=== PATIENT | female | born 2000 | race Caucasian/White ===

== ENCOUNTER 2020-12-28 20:49 | Emergency (ER) | payer MEDICAID, SELFPAY ==
[2020-12-28 21:06] VITALS: BP 146/75; PULSE 89; RESP 18; TEMP 36.7; O2SAT 98; BMI 47.9
--- NOTE | 2020-12-28 21:13 | CT_ITS ---
PROCEDURE INFORMATION: Exam: CT Abdomen And Pelvis With Contrast Exam date and time: 12/28/2020 9:13 PM Age: 20 years old Clinical indication: Abdominal pain; Localized; Right upper quadrant (ruq); Patient HX: Ruq pain with vomiting, PT has pcos; Additional info: Abd pain ruq TECHNIQUE: Imaging protocol: Computed tomography of the abdomen and pelvis with contrast. Radiation optimization: All CT scans at this facility use at least one of these dose optimization techniques: automated exposure control; mA and/or kV adjustment per patient size (includes targeted exams where dose is matched to clinical indication); or iterative reconstruction. Contrast material: ISOVUE; Contrast volume: 75 ml; Contrast route: IV; COMPARISON: No relevant prior studies available. FINDINGS: Liver: Fatty liver and hepatomegaly. Gallbladder and bile ducts: Normal. No calcified stones. No ductal dilation. Pancreas: Normal. No ductal dilation. Spleen: Normal. No splenomegaly. Adrenal glands: Normal. No mass. Kidneys and ureters: Normal. No hydronephrosis. Stomach and bowel: Unremarkable. No obstruction. No mucosal thickening. Appendix: No evidence of appendicitis. Intraperitoneal space: Unremarkable. No free air. No significant fluid collection. Vasculature: Unremarkable. No abdominal aortic aneurysm. Lymph nodes: Unremarkable. No enlarged lymph nodes. Urinary bladder: Unremarkable as visualized. Reproductive: Unremarkable as visualized. Bones/joints: Unremarkable. No acute fracture. Soft tissues: Unremarkable. IMPRESSION: No acute findings.
[2020-12-28 21:20] LABS: Microscopic, Urine URINE MICROSCOPIC (MICROSCOPIC)
--- NOTE | 2020-12-28 21:21 | HMH.EDNVD ---
ED Disposition Clinical Impression: Abdominal pain Qualifiers: Abdominal location: right upper quadrant Qualified Code(s): R10.11 - Right upper quadrant pain Disposition: Home, Self-Care Condition on Discharge: Good Instructions: DI for Acute Abdominal Pain Additional Instructions: see pcp for jacqueline dominguez Referrals: Provider,Referral, [Primary Care Provider] - - Critical Care Critical Care Time: No Attestation: On 12/28/20, the high probability of a clinically significant, sudden or life threatening deterioration of the following system(s) required my full and direct attention, intervention and personal management. The time I documented below is in addition to time spent performing reported procedures but includes the following listed in this critical care notation. Medical Decision Making - Medical Records Medical records reviewed: Yes: I reviewed the patient's medical records. - Roman Inquiry Pt receiving controlled substance: No Vital Signs: 12/28/20 21:06 Temperature 98.1 F Temperature Source Oral Pulse Rate [Right Brachial] 89 Respiratory Rate 18 Blood Pressure [Right Arm] 146/75 H Blood Pressure Mean [Right Arm] 98 Blood Pressure Source [Right Arm] Automatic Cuff Blood Pressure Position [Right Arm] Sitting 02 Sat by Pulse Oximetry 98 Oxygen Delivery Method Room Air - Lab Data Lab results reviewed: Yes: I reviewed the patient's lab results. Lab Results 12/28/20 21:00: Urine Color Yellow, Urine Appearance Clear, Urine pH 8.0, Ur Specific [place] 1.020, Urine Protein Negative, Urine Glucose (UA) Negative, Urine Ketones Negative, Urine Blood Negative, Urine Nitrate Negative, Urine Bilirubin Negative, Urine Urobilinogen 1.0, Ur Leukocyte Esterase Negative, Urine WBC 3-5, Urine Bacteria Trace 12/28/20 21:00: WBC 9.8, RBC 5.01, Hgb 15.6, Hct 45.7, MCV 91.3, MCH 31.1, MCHC 34.0, RDW 12.9, Plt Count 430 H, MPV 8.5, Neut % (Auto) 65.4, Lymph % (Auto) 27.9, [place] % (Auto) 3.8, Eos % (Auto) 1.8, Baso % (Auto) 1.1, Neut # (Auto) 6.4, Lymph # (Auto) 2.7, [place] # (Auto) 0.4, Eos # (Auto) 0.2, Baso # (Auto) 0.1, ESR 47 H 12/28/20 21:00: Urine HCG, Qual Negative 12/28/20 21:00: Sodium 139, Potassium 3.7, Chloride 99, Carbon Dioxide 27, Anion Gap 16.7 H, BUN 13, Creatinine 0.60, Estimated Creat Clear 124, Estimated GFR 127, Est GFR ( Amer) 154, Glucose 108 H, Calcium 9.3, Total Bilirubin 0.3, AST 35, ALT 42, Alkaline Phosphatase 55, C-Reactive Protein 6.1 H, Total Protein 8.1, Albumin 4.6, Globulin 3.5 H, Albumin/Globulin Ratio 1.3, Amylase 72, Lipase 113, Procalcitonin 0.048 Result diagrams: 12/28/20 21:00 12/28/20 21:00 Orders (Tests/Meds): ED MEDICATIONS Discontinued Medications Generic Name Dose Route Start Last Admin Trade Name Freq PRN Reason Stop Dose Admin Lactated Ringer's 1,000 mls @ 999 mls/hr 12/28/20 21:15 12/28/20 21:45 Lactated Ringer's 1000 Ml Bag IV 12/28/20 22:15 999 mls/hr .Q1H1M MARAI G Administration Iopamidol 75 ml 12/28/20 22:03 12/28/20 22:04 Iopamidol-370 (76%);100ml Bottle IV 12/28/20 22:04 75 ml ONCE ONE Administration Ketorolac Tromethamine 30 mg 12/28/20 21:14 12/28/20 21:44 Ketorolac 30mg/Ml Vial IV 12/28/20 21:15 30 mg ONCE ONE Administration Ondansetron HCl 4 mg 12/28/20 21:14 12/28/20 21:44 Ondansetron 4mg/2ml Vial IV 12/28/20 21:15 4 mg ONCE ONE Administration Sodium Chloride 10 ml 12/28/20 22:03 12/28/20 22:04 Sodium Chloride 0.9% 10ml Syr (Rad Only) IV 12/28/20 22:04 10 ml ONCE ONE Administration - CT Data CT Scan: Abdomen, Pelvis Time Received: 22:[address] Reviewed: Yes: I have viewed the radiologist's interpretation Preliminary Findings: Normal/NAD Medical Decision Narrative: will need to see pcp for more eval as could be gb dis Nausea/Vomiting/Diarrhea HPI - General Chief complaint: Abdominal Pain Stated complaint: abdominal pain Time Seen by Provider: 12/28/20 21:21 Mode of Arrival:
[2020-12-28 21:24] LABS: Basophils # 0.1 K/mm3 (0-0.2); Basophils % 1.1 % (0.1-2.0); Eosinophils # 0.2 K/mm3 (0.0-0.4); Eosinophils % 1.8 % (0.1-12.0); Hematocrit 45.7 % (37.0-47.0); Hemoglobin 15.6 g/dL (12.2-16.2); Lymphocytes # 2.7 K/mm3 (0.7-4.5); Lymphocytes % 27.9 % (10-50); Mean Corpuscular Hemoglobin 31.1 pg (27.0-31.2); Mean Corpuscular Volume 91.3 fl (81-99); Mean Platelet Volume 8.5 fl (7.4-10.4); Monocytes # 0.4 K/mm3 (0.1-1.0); Monocytes % 3.8 % (1.7-9.3); Neutrophils # 6.4 K/mm3 (1.8-7.8); Neutrophils % 65.4 % (37.0-80.0); Platelet Count 430 K/mm3 (142-424); Red Blood Count 5.01 M/mm3 (4.20-5.40); Red Cell Distribution Width 12.9 % (11.5-17.5); White Blood Count 9.8 K/mm3 (4.5-13.0)
[2020-12-28 21:27] LABS: Appearance,Urine CLEAR (Clear); Bilirubin,Urine Negative (Negative); Blood, Urine Negative (Negative); Color,Urine YELLOW (Yellow); Glucose,Urine (UA) Negative (Negative); Ketones,Urine Negative (Negative); Leukocyte Esterase,Urine Negative (Negative); Nitrate,Urine Negative (Negative); Protein,Urine Negative (Negative)
[2020-12-28 21:29] LABS: Alanine Aminotransferase 42 U/L (12-78); Albumin Level 4.6 g/dl (3.5-5.0); Albumin/Globulin Ratio 1.3 (1.1-1.8); Alkaline Phosphatase 55 U/L (38-126); Amylase 72 U/L (30-110); Anion Gap 16.7 mEq/L (5-15); Aspartate Amino Transferase 35 U/L (14-36); Bilirubin,Total 0.3 mg/dl (0.2-1.3); Blood Urea Nitrogen 13 mg/dl (7-17); Calcium 9.3 mg/dl (8.4-10.2); Carbon Dioxide 27 mmol/L (22.0-30.0); Chloride 99 mmol/L (98-107); Creatinine Clearance Estimated 124 mL/min (50-200); Estimated Glomerular Filt Rate 127 ml/min (>60); GFR (African American) 154 ML/MIN (>60); Globulin 3.5 g/dL (1.3-3.2); Glucose 108 mg/dl (74-100); Lipase 113 U/L (23-300); Potassium 3.7 mmoL/L (3.5-5.1); Sodium 139 mmol/L (136-145); Total Protein,Serum 8.1 g/dl (6.3-8.2)
[2020-12-28 21:35] LABS: C-Reactive Protein 6.1 mg/L (0-4)
[2020-12-28 21:37] LABS: Urine Pregnancy, HCG Qual. Negative (Negative)
[2020-12-28 21:40] LABS: Bacteria,Urine Trace /lpf
[2020-12-28 21:48] LABS: Procalcitonin 0.048 ng/mL (0.0-2.0)
[2020-12-28 22:10] LABS: Erythrocyte Sedimentation Rate 47 mm/hr (0-20)
[2020-12-28 23:02] VITALS: BP 123/75; PULSE 73; RESP 18; TEMP 36.8; O2SAT 98
== END 2020-12-28 23:05 | disposition home or self-care (01) ==
PROVIDERS: Emergency Provider Emergency Medicine
DX: R10.11 Right upper quadrant pain (principal); R11.0 Nausea
CPT/HCPCS: 74177; 80053; 81001; 81025; 82150; 83690; 84145; 85025; 85651; 86140; 96372; 99283; J2405; Q9967

== ENCOUNTER 2021-01-12 22:08 | Emergency (ER) | payer MEDICAID, SELFPAY ==
[2021-01-12 22:20] VITALS: BP 140/82; PULSE 84; RESP 18; TEMP 37; O2SAT 99; BMI 46.5
[2021-01-12 22:31] VITALS: BMI 46.5
[2021-01-12 22:47] LABS: Microscopic, Urine URINE MICROSCOPIC (MICROSCOPIC)
[2021-01-12 22:51] LABS: Appearance,Urine SL CLOUDY (Clear); Bilirubin,Urine Negative (Negative); Blood, Urine Negative (Negative); Color,Urine YELLOW (Yellow); Glucose,Urine (UA) Negative (Negative); Ketones,Urine Negative (Negative); Leukocyte Esterase,Urine Negative (Negative); Nitrate,Urine Negative (Negative); PH,Urine 7.5 (5.0-8.5); Protein,Urine Negative (Negative); Specific Gravity, Urine 1.025 (1.005-1.030); Urobilinogen,Urine 0.2 EU/dl (0.2)
[2021-01-12 22:53] LABS: Urine Pregnancy, HCG Qual. Negative (Negative)
--- NOTE | 2021-01-12 22:53 | CT_ITS ---
PROCEDURE INFORMATION: Exam: CT Abdomen And Pelvis With Contrast Exam date and time: 01/12/2021 10:53 PM Age: 20 years old Clinical indication: Abdominal pain; Localized; Right; Additional info: Rlq abd pain TECHNIQUE: Imaging protocol: Computed tomography of the abdomen and pelvis with contrast. Radiation optimization: All CT scans at this facility use at least one of these dose optimization techniques: automated exposure control; mA and/or kV adjustment per patient size (includes targeted exams where dose is matched to clinical indication); or iterative reconstruction. Contrast material: ISOVUE; Contrast volume: 75 ml; Contrast route: IV; COMPARISON: CT ABDOMEN PELVIS W CON 12/28/2020 9:47 PM FINDINGS: PANCREATICOHEPATOBILIARY: Enlarged liver shows diffuse fatty infiltration. No significant intra-or extrahepatic ductal dilation. Gallbladder is contracted. Pancreas is unremarkable, mild diffuse non-specific splenomegaly. . GENITOURINARY: No adrenal mass. Both kidneys are unremarkable without hydronephrosis. Empty urinary bladder. Unremarkable uterus. Multiple small bilateral ovarian cysts/follicles. No free fluid in the pelvis. . GASTROINTESTINAL: Colon contains a moderate amount of fecal matter. No free intraperitoneal air or fluid collection. A normal APPENDIX is visualized. . OTHER STRUCTURES: Aorta appears unremarkable without evidence of aortic aneurysm. Numerous normal size/borderline enlarged mesenteric/retroperitoneal lymph nodes. IMPRESSION: Nonemergent/incidental findings as described without any acute abdominopelvic abnormality. COMMENTS: NORMAL APPENDIX without CT evidence of acute appendicitis.
[2021-01-12 23:25] LABS: Bacteria,Urine Trace /lpf; RBC,Urine Occasional #/hpf (0-3)
--- NOTE | 2021-01-12 23:31 | HMH.EDNVD ---
ED Disposition Clinical Impression: Abdominal pain Qualifiers: Abdominal location: right lower quadrant Qualified Code(s): R10.31 - Right lower quadrant pain Disposition: Home, Self-Care Condition on Discharge: Good Instructions: DI for Acute Abdominal Pain Additional Instructions: see pcp for follow up Referrals: Provider,Referral, [Primary Care Provider] - - Critical Care Critical Care Time: No Attestation: On 01/12/21, the high probability of a clinically significant, sudden or life threatening deterioration of the following system(s) required my full and direct attention, intervention and personal management. The time I documented below is in addition to time spent performing reported procedures but includes the following listed in this critical care notation. Medical Decision Making - Medical Records Medical records reviewed: Yes: I reviewed the patient's medical records. - Roman Inquiry Pt receiving controlled substance: No Vital Signs: 01/12/21 22:20 Temperature 98.6 F Temperature Source Oral Pulse Rate [Right] 84 Respiratory Rate 18 Blood Pressure [Right Arm] 140/82 Blood Pressure Mean [Right Arm] 101 02 Sat by Pulse Oximetry 99 Oxygen Delivery Method Room Air - Lab Data Lab results reviewed: Yes: I reviewed the patient's lab results. Lab Results 01/12/21 22:17: Urine Color Yellow, Urine Appearance Sl cloudy, Urine pH 7.5, Ur Specific [place] 1.025, Urine Protein Negative, Urine Glucose (UA) Negative, Urine Ketones Negative, Urine Blood Negative, Urine Nitrate Negative, Urine Bilirubin Negative, Urine Urobilinogen 0.2, Ur Leukocyte Esterase Negative, Urine RBC Occasional, Urine WBC 3-5, Ur Squamous Epith Cells 3-5, Urine Bacteria Trace 01/12/21 22:17: Urine HCG, Qual Negative 01/12/21 23:30: WBC 5.6, RBC 4.79, Hgb 14.8, Hct 44.5, MCV 92.7, MCH 30.9, MCHC 33.4, RDW 12.5, Plt Count 352, MPV 7.4, Neut % (Auto) 59.1, Lymph % (Auto) 32.5, [place] % (Auto) 5.8, Eos % (Auto) 1.6, Baso % (Auto) 1.1, Neut # (Auto) 3.3, Lymph # (Auto) 1.8, [place] # (Auto) 0.3, Eos # (Auto) 0.1, Baso # (Auto) 0.1, ESR 22 H 01/12/21 23:30: Sodium 140, Potassium 3.9, Chloride 101, Carbon Dioxide 26, Anion Gap 16.9 H, BUN 12, Creatinine 0.60, Estimated Creat Clear 124, Estimated GFR 127, Est GFR ( Amer) 154, Glucose 111 H, Calcium 9.4, Total Bilirubin 0.2, AST 40 H, ALT 61, Alkaline Phosphatase 55, C-Reactive Protein 7.1 H, Total Protein 7.8, Albumin 4.6, Globulin 3.2, Albumin/Globulin Ratio 1.4, Amylase 69, Lipase 68, Procalcitonin 0.072 Result diagrams: 01/12/21 23:30 01/12/21 23:30 Orders (Tests/Meds): ED MEDICATIONS Generic Name Dose Route Start Last Admin Trade Name Freq PRN Reason Stop Dose Admin Sodium Chloride 1,000 mls @ 999 mls/hr 01/12/21 23:00 01/13/21 00:34 Sod Chlor 0.9% 1000ml Bag IV 01/13/21 00:00 999 mls/hr .Q1H1M MARIA G Administration Sodium Chloride 8 ml 01/12/21 23:06 Sodium Chloride 0.9% 10ml Vial IV 02/11/21 23:05 NEEDED PRN dilute pepcid Discontinued Medications Generic Name Dose Route Start Last Admin Trade Name Freq PRN Reason Stop Dose Admin Famotidine 20 mg 01/12/21 23:06 01/13/21 00:34 Famotidine 20mg/2ml Vial IV 01/12/21 23:07 20 mg ONCE ONE Administration Iopamidol 75 ml 01/12/21 23:48 01/12/21 23:49 Iopamidol-370 (76%);100ml Bottle IV 01/12/21 23:49 75 ml ONCE ONE Administration Ketorolac Tromethamine 30 mg 01/12/21 23:06 01/13/21 00:34 Ketorolac 30mg/Ml Vial IV 01/12/21 23:07 30 mg ONCE ONE Administration Metoclopramide HCl 10 mg 01/12/21 23:06 01/13/21 00:35 Metoclopramide Hcl 10mg/2ml Vial IVP 01/12/21 23:07 10 mg ONCE ONE Administration Ondansetron HCl 4 mg 01/12/21 23:06 01/13/21 00:34 Ondansetron 4mg/2ml Vial IV 01/12/21 23:07 4 mg ONCE ONE Administration Sodium Chloride 10 ml 01/12/21 23:48 01/12/21 23:49 Sodium Chloride 0.9% 10ml Syr (Rad Only) IV 01/12/21 23:49 10 ml
[2021-01-12 23:39] LABS: Basophils # 0.1 K/mm3 (0-0.2); Basophils % 1.1 % (0.1-2.0); Eosinophils # 0.1 K/mm3 (0.0-0.4); Eosinophils % 1.6 % (0.1-12.0); Hematocrit 44.5 % (37.0-47.0); Hemoglobin 14.8 g/dL (12.2-16.2); Lymphocytes # 1.8 K/mm3 (0.7-4.5); Lymphocytes % 32.5 % (10-50); Mean Corpuscular HGB Conc 33.4 g/dL (31.8-35.4); Mean Corpuscular Hemoglobin 30.9 pg (27.0-31.2); Mean Corpuscular Volume 92.7 fl (81-99); Mean Platelet Volume 7.4 fl (7.4-10.4); Monocytes # 0.3 K/mm3 (0.1-1.0); Monocytes % 5.8 % (1.7-9.3); Neutrophils # 3.3 K/mm3 (1.8-7.8); Neutrophils % 59.1 % (37.0-80.0); Platelet Count 352 K/mm3 (142-424); Red Blood Count 4.79 M/mm3 (4.20-5.40); Red Cell Distribution Width 12.5 % (11.5-17.5); White Blood Count 5.6 K/mm3 (4.5-13.0)
[2021-01-12 23:45] LABS: Alanine Aminotransferase 61 U/L (12-78); Albumin Level 4.6 g/dl (3.5-5.0); Albumin/Globulin Ratio 1.4 (1.1-1.8); Alkaline Phosphatase 55 U/L (38-126); Amylase 69 U/L (30-110); Anion Gap 16.9 mEq/L (5-15); Aspartate Amino Transferase 40 U/L (14-36); Bilirubin,Total 0.2 mg/dl (0.2-1.3); Blood Urea Nitrogen 12 mg/dl (7-17); Calcium 9.4 mg/dl (8.4-10.2); Carbon Dioxide 26 mmol/L (22.0-30.0); Chloride 101 mmol/L (98-107); Creatinine Clearance Estimated 124 mL/min (50-200); Estimated Glomerular Filt Rate 127 ml/min (>60); GFR (African American) 154 ML/MIN (>60); Globulin 3.2 g/dL (1.3-3.2); Glucose 111 mg/dl (74-100); Lipase 68 U/L (23-300); Potassium 3.9 mmoL/L (3.5-5.1); Sodium 140 mmol/L (136-145); Total Protein,Serum 7.8 g/dl (6.3-8.2)
[2021-01-12 23:51] LABS: C-Reactive Protein 7.1 mg/L (0-4)
[2021-01-13 00:05] LABS: Erythrocyte Sedimentation Rate 22 mm/hr (0-20); Procalcitonin 0.072 ng/mL (0.0-2.0)
[2021-01-13 02:42] VITALS: BP 135/71; PULSE 80; RESP 18; TEMP 37; O2SAT 99
== END 2021-01-13 02:46 | disposition home or self-care (01) ==
PROVIDERS: Emergency Provider Emergency Medicine
DX: R10.31 Right lower quadrant pain (principal)
CPT/HCPCS: 74177; 80053; 81001; 81025; 82150; 83690; 84145; 85025; 85651; 86140; 96365; 96375; 99283; J2405; Q9967

== ENCOUNTER 2021-04-03 20:34 | Emergency (ER) | payer MEDICAID, SELFPAY ==
[2021-04-03 20:35] VITALS: BP 139/85; PULSE 98; RESP 16; TEMP 36.9; O2SAT 100; BMI 48.3
[2021-04-03 20:50] LABS: Microscopic, Urine URINE MICROSCOPIC (MICROSCOPIC)
[2021-04-03 20:51] LABS: Appearance,Urine CLEAR (Clear); Bilirubin,Urine Negative (Negative); Blood, Urine Negative (Negative); Color,Urine YELLOW (Yellow); Glucose,Urine (UA) Negative (Negative); Ketones,Urine Negative (Negative); Leukocyte Esterase,Urine Negative (Negative); Nitrate,Urine Negative (Negative); Protein,Urine Negative (Negative); Urobilinogen,Urine 0.2 EU/dl (0.2)
[2021-04-03 20:52] LABS: Urine Pregnancy, HCG Qual. Negative (Negative)
--- NOTE | 2021-04-03 21:35 | CT_ITS ---
PROCEDURE INFORMATION: Exam: CT Abdomen And Pelvis With Contrast Exam date and time: 04/03/2021 9:35 PM Age: 21 years old Clinical indication: Abdominal pain; Generalized; Additional info: Abd pain TECHNIQUE: Imaging protocol: Computed tomography of the abdomen and pelvis with contrast. Radiation optimization: All CT scans at this facility use at least one of these dose optimization techniques: automated exposure control; mA and/or kV adjustment per patient size (includes targeted exams where dose is matched to clinical indication); or iterative reconstruction. Contrast material: ISOVUE; Contrast volume: 75 ml; Contrast route: IV; COMPARISON: CT ABDOMEN PELVIS W CON 01/12/2021 11:37 PM FINDINGS: Lungs: Tiny subpleural nodular density in the posterior subpleural right lower lobe measuring approximately 1.5 mm is stable, seen on series 3, image 16. The visualized lung bases are otherwise clear. Pleural spaces: There are no pleural effusions. Heart: The visualized portions of the heart are unremarkable. There is no evidence of pericardial fluid collections. Liver: There is a diffuse decrease in hepatic parenchymal density, consistent with fatty infiltration. There are regions of focal parenchymal sparing adjacent to the gallbladder fossa. Gallbladder and bile ducts: The gallbladder is normal. Pancreas: The pancreas is normal. Spleen: The spleen is normal. Adrenal glands: The adrenal glands are normal. Kidneys and ureters: The kidneys are normal. Stomach and bowel: The stomach is normal. The duodenum is unremarkable. Lack of gastrointestinal contrast limits evaluation of bowel. The colon is normal. Unopacified loops of small bowel within range of normal. Appendix: A normal appendix is identified. Intraperitoneal space: There is no evidence of free intraperitoneal or pelvic fluid. No evidence of intraperitoneal free air. Vasculature: No abdominal aortic aneurysm. Lymph nodes: No enlarged lymph nodes. Urinary bladder: The bladder is decompressed. Reproductive: The uterus is normal. The left ovary is normal. The right ovary is normal. Bones/joints: There is no evidence of acute fracture. Soft tissues: Unremarkable. IMPRESSION: Fatty hepatic infiltration. No acute intra-abdominal pathology.
--- NOTE | 2021-04-03 21:44 | HMH.EDNVD ---
ED Disposition Clinical Impression: Abdominal pain Qualifiers: Abdominal location: right upper quadrant Qualified Code(s): R10.11 - Right upper quadrant pain Disposition: Home, Self-Care Condition on Discharge: Good Instructions: DI for Nausea -- Adult Additional Instructions: see pcp for continued eval Referrals: Provider,Referral, [Primary Care Provider] - - Critical Care Critical Care Time: No Attestation: On 04/03/21, the high probability of a clinically significant, sudden or life threatening deterioration of the following system(s) required my full and direct attention, intervention and personal management. The time I documented below is in addition to time spent performing reported procedures but includes the following listed in this critical care notation. Medical Decision Making - Medical Records Medical records reviewed: Yes: I reviewed the patient's medical records. - Roman Inquiry Pt receiving controlled substance: No Vital Signs: 04/03/21 20:35 Temperature 98.4 F Temperature Source Oral Pulse Rate [Left] 98 H Respiratory Rate 16 Blood Pressure [Right Arm] 139/85 Blood Pressure Mean [Right Arm] 103 02 Sat by Pulse Oximetry 100 - Lab Data Lab results reviewed: Yes: I reviewed the patient's lab results. Lab Results 04/03/21 20:42: Urine Color Yellow, Urine Appearance Clear, Urine pH 8.0, Ur Specific [place] 1.020, Urine Protein Negative, Urine Glucose (UA) Negative, Urine Ketones Negative, Urine Blood Negative, Urine Nitrate Negative, Urine Bilirubin Negative, Urine Urobilinogen 0.2, Ur Leukocyte Esterase Negative, Ur Squamous Epith Cells 5-10 04/03/21 20:42: Urine HCG, Qual Negative 04/03/21 21:04: WBC 7.5, RBC 4.74, Hgb 14.6, Hct 43.3, MCV 91.4, MCH 30.8, MCHC 33.7, RDW 11.8, Plt Count 341, MPV 8.4, Neut % (Auto) 62.8, Lymph % (Auto) 29.7, [place] % (Auto) 5.7, Eos % (Auto) 1.2, Baso % (Auto) 0.8, Neut # (Auto) 4.7, Lymph # (Auto) 2.2, [place] # (Auto) 0.4, Eos # (Auto) 0.1, Baso # (Auto) 0.1 04/03/21 21:04: Sodium 137, Potassium 4.1, Chloride 102, Carbon Dioxide 25, Anion Gap 14.1, BUN 11, Creatinine 0.50 L, Estimated Creat Clear 147, Estimated GFR 156, Est GFR ( Amer) 188, Glucose 114 H, Calcium 9.6, Total Bilirubin 0.3, AST 46 H, ALT 38, Alkaline Phosphatase 45, Total Protein 7.7, Albumin 4.6, Globulin 3.1, Albumin/Globulin Ratio 1.5, Amylase 71, Lipase 82 Result diagrams: 04/03/21 21:04 04/03/21 21:04 Orders (Tests/Meds): ED MEDICATIONS Generic Name Dose Route Start Last Admin Trade Name Freq PRN Reason Stop Dose Admin Sodium Chloride 1,000 mls @ 999 mls/hr 04/03/21 21:45 04/03/21 21:45 Sod Chlor 0.9% 1000ml Bag IV 04/03/21 22:45 999 mls/hr .Q1H1M MARIA G Administration Discontinued Medications Generic Name Dose Route Start Last Admin Trade Name Freq PRN Reason Stop Dose Admin Iopamidol 75 ml 04/03/21 22:00 04/03/21 22:01 Iopamidol-370 (76%);100ml Bottle IV 04/03/21 22:01 75 ml ONCE ONE Administration Ondansetron HCl 4 mg 04/03/21 21:39 04/03/21 21:45 Ondansetron 4mg/2ml Vial IV 04/03/21 21:40 4 mg ONCE ONE Administration Sodium Chloride 10 ml 04/03/21 22:00 04/03/21 22:01 Sodium Chloride 0.9% 10ml Syr (Rad Only) IV 04/03/21 22:01 10 ml ONCE ONE Administration - CT Data CT Scan: Abdomen, Pelvis Time Received: 23:[address] Reviewed: Yes: I have viewed the radiologist's interpretation Preliminary Findings: Normal/NAD Medical Decision Narrative: stable exam and labs and xray and will need gb eval Nausea/Vomiting/Diarrhea HPI - General Chief complaint: Nausea/Vomiting/Diarrhea Stated complaint: Abd pain Time Seen by Provider: 04/03/21 20:50 Mode of Arrival: Family Vehicle Source of Information: Patient, Medical Record Limitations: No Limitations Description of Symptoms (Recalled from ER Triage Doc. by RN): pt states that she has had abdominal pain for 2 days a nausea and diarrhea. states to have pain in the lower
[2021-04-03 21:48] LABS: Basophils # 0.1 K/mm3 (0-0.2); Basophils % 0.8 % (0.1-2.0); Eosinophils # 0.1 K/mm3 (0.0-0.4); Eosinophils % 1.2 % (0.1-12.0); Hematocrit 43.3 % (37.0-47.0); Hemoglobin 14.6 g/dL (12.2-16.2); Lymphocytes # 2.2 K/mm3 (0.7-4.5); Lymphocytes % 29.7 % (10-50); Mean Corpuscular HGB Conc 33.7 g/dL (31.8-35.4); Mean Corpuscular Hemoglobin 30.8 pg (27.0-31.2); Mean Corpuscular Volume 91.4 fl (81-99); Mean Platelet Volume 8.4 fl (7.4-10.4); Monocytes # 0.4 K/mm3 (0.1-1.0); Monocytes % 5.7 % (1.7-9.3); Neutrophils # 4.7 K/mm3 (1.8-7.8); Neutrophils % 62.8 % (37.0-80.0); Platelet Count 341 K/mm3 (142-424); Red Blood Count 4.74 M/mm3 (4.20-5.40); Red Cell Distribution Width 11.8 % (11.5-17.5); White Blood Count 7.5 K/mm3 (4.8-10.8)
[2021-04-03 21:53] LABS: Chloride 102 mmol/L (98-107); Potassium 4.1 mmoL/L (3.5-5.1); Sodium 137 mmol/L (136-145)
[2021-04-03 21:56] LABS: Alanine Aminotransferase 38 U/L (12-78); Albumin Level 4.6 g/dl (3.5-5.0); Albumin/Globulin Ratio 1.5 (1.1-1.8); Alkaline Phosphatase 45 U/L (38-126); Amylase 71 U/L (30-110); Anion Gap 14.1 mEq/L (5-15); Aspartate Amino Transferase 46 U/L (14-36); Bilirubin,Total 0.3 mg/dl (0.2-1.3); Blood Urea Nitrogen 11 mg/dl (7-17); Calcium 9.6 mg/dl (8.4-10.2); Carbon Dioxide 25 mmol/L (22.0-30.0); Creatinine Clearance Estimated 147 mL/min (50-200); Estimated Glomerular Filt Rate 156 ml/min (>60); GFR (African American) 188 ML/MIN (>60); Globulin 3.1 g/dL (1.3-3.2); Glucose 114 mg/dl (74-100); Lipase 82 U/L (23-300); Total Protein,Serum 7.7 g/dl (6.3-8.2)
[2021-04-04 00:31] VITALS: BP 139/85; PULSE 94; RESP 16; TEMP 37.1; O2SAT 99
== END 2021-04-04 00:35 | disposition home or self-care (01) ==
PROVIDERS: Emergency Provider Emergency Medicine
DX: R10.11 Right upper quadrant pain (principal); R10.31 Right lower quadrant pain
CPT/HCPCS: 74177; 80053; 81001; 81025; 82150; 83690; 85025; 96365; 96375; 99283; J2405; Q9967

== ENCOUNTER 2021-04-07 10:27 | Emergency (ER) | payer MEDICAID, SELFPAY ==
[2021-04-07 10:43] VITALS: BP 133/87; PULSE 91; RESP 14; TEMP 36.6; O2SAT 100; BMI 48.5
--- NOTE | 2021-04-07 11:03 | HMH.EDUTC ---
[facility] [place]: [place] test Disposition: Home, Self-Care Condition on Discharge: Good Additional Instructions: Follow up with your Family Doctor if you continue to have absent and late periods Follow up with OBGYN Return if needed Straight to ER If any life threatening symptoms Referrals: Provider,Referral, MD [Primary Care Provider] - As needed Time of Disposition: 11:45 Medical Decision Making - Roman Inquiry Pt receiving controlled substance: No Roman was queried for this patient: No Vital Signs: 04/07/21 10:43 Temperature 97.9 F Temperature Source Oral Pulse Rate [Left] 91 H Respiratory Rate 14 Blood Pressure [Right Arm] 133/87 Blood Pressure Mean [Right Arm] 102 02 Sat by Pulse Oximetry 100 - Lab Data Lab Results 04/07/21 11:16: Serum HCG, Qual Negative 04/07/21 11:34: Tst Clinic Negative Medical Decision Narrative: Awaiting beta HCG [facility] [place] - General Stated complaint: prengancy test Time Seen by Provider: 04/07/21 11:04 Mode of Arrival: Ambulatory Source of Information: Patient Limitations: No Limitations Description of Symptoms (Recalled from Triage Doc. by RN): pt states she had a faint positive urine preg test this am at home. pts last LMP was 03/04. however, pt states she had some spotting x3 days 03/21. HEENT Symptoms (Recalled from RN notes): No Resp Symptoms (Recalled from RN notes): No Skin Symptoms (Recalled from RN notes): No MS Symptoms (Recalled from RN notes): No Functional Status (Recalled from RN notes): wnl - History of Present Illness Provider Complaint: Patient states that she took a home pregnanacy test and it showed a faint positive so she came in requesting a test States that her last period was on 03/04 and she did have some spotting at the end of Mar but wasnt her normal period - Related Data Allergies Allergy/AdvReac Type Severity Reaction Status Date / Time No Known Allergies Allergy Verified 12/28/20 21:12 - Worker's Comp Is this a Worker's Comp case?: No [facility] History - Hepatitis A Screen Drug use history?: No High risk sexual behaviors?: No History of sexually transmitted infection?: No Currently employed?: No Childcare worker?: No Do you have indoor plumbing?: Yes Do you have electricity?: Yes Attestation statement:: This patient has been screened for Hepatitis A risk factors. I have reviewed the patient's past medical history: Yes ROS Obtained: Yes All systems reviewed & no additional complaints, Yes Systems reviewed as appropriate & no additional complaints - Constitutional Constitutional: Reports system reviewed and no additional complaints, except as docu, Denies body ache, Denies chills, Denies fever(s) - ENT Ears, Nose, Mouth, and Throat: Reports system reviewed and no additional complaints, except as docu - Cardiovascular Cardiovascular: Reports system reviewed and no additional complaints, except as docu - Respiratory Respiratory: Reports system reviewed and no additional complaints, except as docu - Gastrointestinal Gastrointestingal: Reports: system reviewed and no additional complaints, except as docu. Denies: abdominal pain, cramping - Genitourinary Female Genitourinary: Reports system reviewed and no additional complaints, except as docu, Reports abnormal menses Physical Exam - General General appearance: alert, in no apparent distress - Respiratory Respiratory exam: Present: normal lung sounds bilaterally. Absent: respiratory distress - Cardiovascular Cardiovascular exam: Present: regular rate, normal rhythm. Absent: JVD - Abdominal Exam Abdominal exam: Present: soft, normal bowel sounds. Absent: distention, tenderness, guarding - Neurological Exam Neurological exam: Present: alert, oriented X3
[2021-04-07 11:35] LABS: UTC Pregnancy Test, Urine Negative (Negative)
[2021-04-07 11:40] LABS: HCG Qualitative, Serum Negative (Negative)
[2021-04-07 12:03] VITALS: BP 133/87; PULSE 91; RESP 14; TEMP 36.6
== END 2021-04-07 12:10 | disposition home or self-care (01) ==
PROVIDERS: Emergency Provider Nurse Practitioner
DX: Z32.02 Encounter for pregnancy test, result negative (principal)
CPT/HCPCS: 81025; 84703; 99202; G0463

== ENCOUNTER 2021-04-14 17:58 | Emergency (ER) | payer MEDICAID, SELFPAY ==
[2021-04-14 19:20] VITALS: BP 131/87; PULSE 86; RESP 18; TEMP 36.9; O2SAT 97; BMI 46.5
[2021-04-14 19:42] LABS: Apearance,Urine Clear (Clear); Bilirubin,Urine Negative (Negative); Blood, Urine Negative (Negative); Color,Urine Yellow (Yellow); Glucose,Urine (UA) Negative (Negative); Ketones,Urine TRACE (Negative); Protein,Urine 1+ (Negative); Specific Gravity, Urine 1.025 (1.005-1.030); UTC Leukocyte Esterase,Urine Negative (Negative); UTC Nitrate,Urine Negative (Negative); UTC Pregnancy Test, Urine Negative (Negative); Urobilinogen,Urine 0.2 EU/dl (0.2)
--- NOTE | 2021-04-14 20:01 | HMH.EDUTC ---
[facility] – [place] Disposition Clinical Impression: Upset stomach Disposition: Home, Self-Care Condition on Discharge: Good Instructions: DI for Nausea -- Adult Additional Instructions: Make sure to drink plenty of fluids like water to help flush out your kidneys Follow up with Family Doctor if no improvement or any worsening of symptoms Return if needed Follow up with OBGYN if you continued to have symptoms Straight to ER if any life threatening symptoms Referrals: Provider,Referral, MD [Primary Care Provider] - As needed Time of Disposition: 20:14 Medical Decision Making - Roman Inquiry Pt receiving controlled substance: No Roman was queried for this patient: No Vital Signs: 04/14/21 19:20 Temperature 98.4 F Temperature Source Oral Pulse Rate [Right Brachial] 86 Respiratory Rate 18 Blood Pressure [Right Arm] 131/87 Blood Pressure Mean [Right Arm] 101 Blood Pressure Source [Right Arm] Automatic Cuff Blood Pressure Position [Right Arm] Sitting 02 Sat by Pulse Oximetry 97 Oxygen Delivery Method Room Air - Lab Data Lab results reviewed: Yes: I reviewed the patient's lab results. Lab Results 04/14/21 19:27: Urine Color Yellow, Urine Appearance Clear, Urine pH 7.0, Ur Specific [place] 1.025, Urine Protein 1+, Urine Glucose (UA) Negative, Urine Ketones Trace, Urine Blood Negative, Urine Nitrate Negative, Urine Bilirubin Negative, Urine Urobilinogen 0.2, Ur Leukocyte Esterase Negative, Tst Clinic Negative Orders (Tests/Meds): ORDERS Category Date Time Status HCG Qualitative, Serum Stat Lab 04/14/21 20:05 Received Medical Decision Narrative: Patient states that she is wanting to leave and call back for her blood test [facility] [place] HPI - General Stated complaint: possible UTI test Time Seen by Provider: 04/14/21 19:30 Mode of Arrival: Ambulatory Source of Information: Patient, Parent(s) Limitations: No Limitations Description of Symptoms (Recalled from Triage Doc. by RN): PATIENT C/O LOWER BACK PAIN, BLOOD IN URINE, AND URINARY FREQUENCY. ALSO REQUESTING TEST HEENT Symptoms (Recalled from RN notes): No Resp Symptoms (Recalled from RN notes): No Skin Symptoms (Recalled from RN notes): No MS Symptoms (Recalled from RN notes): No Functional Status (Recalled from RN notes): WNL - History of Present Illness Provider Complaint: Patient state that she has been having low back ache, dark urine at times and feeling of urgency States that she wants to get checked for UTI and wanting blood and urine test States that she took some home test and they was fuzzy so she wanted to get checked here for too - Related Data Home Medications Medication Instructions Recorded Confirmed Sertraline HCl [Zoloft] 25 mg PO DAILY 04/14/21 04/14/21 Allergies Allergy/AdvReac Type Severity Reaction Status Date / Time No Known Allergies Allergy Verified 12/28/20 21:12 - Worker's Comp Is this a Worker's Comp case?: No [facility] History - Hepatitis A Screen Drug use history?: No High risk sexual behaviors?: No History of sexually transmitted infection?: No Currently employed?: No Childcare worker?: No Do you have indoor plumbing?: Yes Do you have electricity?: Yes Attestation statement:: This patient has been screened for Hepatitis A risk factors. I have reviewed the patient's past medical history: Yes ROS Obtained: Yes All systems reviewed & no additional complaints, Yes Systems reviewed as appropriate & no additional complaints - Constitutional Constitutional: Reports system reviewed and no additional complaints, except as docu, Denies body ache, Denies chills, Denies fever(s) - ENT Ears, Nose, Mouth, and Throat: Reports system reviewed and no additional complaints, except as docu - Cardiovascular Cardiovascular: Reports system reviewed and no additional complaints, except as docu - Respiratory Respiratory: Reports system reviewed and no additional co
[2021-04-14 20:05] VITALS: BP 131/87; PULSE 86; RESP 18; TEMP 36.9; O2SAT 97
[2021-04-14 21:20] LABS: HCG Qualitative, Serum Negative (Negative)
== END 2021-04-14 20:09 | disposition home or self-care (01) ==
PROVIDERS: Emergency Provider Nurse Practitioner
DX: M54.50 Low back pain, unspecified (principal); Z32.02 Encounter for pregnancy test, result negative; K30 Functional dyspepsia
CPT/HCPCS: 81003; 81025; 84703; 99203; G0463

== ENCOUNTER 2021-07-30 21:32 | Emergency (ER) | payer MEDICAID, SELFPAY ==
[2021-07-30 21:32] VITALS: BP 136/83; PULSE 89; RESP 18; TEMP 36.9; O2SAT 99; BMI 47.8
[2021-07-30 22:41] LABS: Microscopic, Urine URINE MICROSCOPIC (MICROSCOPIC)
[2021-07-30 22:50] LABS: Appearance,Urine CLEAR (Clear); Bilirubin,Urine Negative (Negative); Blood, Urine Negative (Negative); Color,Urine YELLOW (Yellow); Glucose,Urine (UA) Negative (Negative); Ketones,Urine Negative (Negative); Leukocyte Esterase,Urine TRACE (Negative); Nitrate,Urine Negative (Negative); Protein,Urine Negative (Negative); Urobilinogen,Urine 0.2 EU/dl (0.2)
[2021-07-30 22:52] LABS: Urine Pregnancy, HCG Qual. Negative (Negative)
--- NOTE | 2021-07-30 22:58 | CT_ITS ---
PROCEDURE INFORMATION: Exam: CT Abdomen And Pelvis With Contrast Exam date and time: 07/31/2021 12:06 AM Age: 21 years old Clinical indication: Abdominal pain; Generalized TECHNIQUE: Imaging protocol: Computed tomography of the abdomen and pelvis with contrast. Radiation optimization: All CT scans at this facility use at least one of these dose optimization techniques: automated exposure control; mA and/or kV adjustment per patient size (includes targeted exams where dose is matched to clinical indication); or iterative reconstruction. Contrast material: ISOVUE; Contrast volume: 75 ml; Contrast route: IV; COMPARISON: CT ABDOMEN PELVIS W CON 04/03/2021 9:51 PM FINDINGS: PANCREATICOHEPATOBILIARY: Enlarged liver shows diffuse fatty infiltration. No significant intra-or extrahepatic ductal dilation. Gallbladder is contracted/incompletely distended. Pancreas and spleen are unremarkable. . GENITOURINARY: No adrenal mass. Both kidneys are unremarkable without hydronephrosis. Empty urinary bladder. Uterus is normal, ovarian cysts/follicles. Small amount of free fluid in the pelvis. . GASTROINTESTINAL: A few colonic diverticula. Bowel loops are otherwise unremarkable. No free air or fluid in the abdomen. A normal APPENDIX is visualized. . OTHER STRUCTURES: Aorta appears unremarkable without evidence of aortic aneurysm. Numerous normal size/borderline enlarged mesenteric/retroperitoneal lymph nodes. IMPRESSION: 1. Nonemergent/incidental findings as described without any acute abdominopelvic abnormality. 2. Small amount of physiologic free fluid in the pelvis likely due to a ruptured ovarian cyst.
[2021-07-30 23:34] LABS: Basophils # 0.1 K/mm3 (0-0.2); Basophils % 1.1 % (0.1-2.0); Eosinophils # 0.2 K/mm3 (0.0-0.4); Eosinophils % 1.6 % (0.1-12.0); Hematocrit 44.7 % (37.0-47.0); Lymphocytes # 2.2 K/mm3 (0.7-4.5); Lymphocytes % 20.9 % (10-50); Mean Corpuscular HGB Conc 33.5 g/dL (31.8-35.4); Mean Corpuscular Hemoglobin 31.1 pg (27.0-31.2); Mean Corpuscular Volume 92.6 fl (81-99); Mean Platelet Volume 8.4 fl (7.4-10.4); Monocytes # 0.4 K/mm3 (0.1-1.0); Neutrophils # 7.7 K/mm3 (1.8-7.8); Neutrophils % 72.4 % (37.0-80.0); Platelet Count 433 K/mm3 (142-424); Red Blood Count 4.83 M/mm3 (4.20-5.40); White Blood Count 10.6 K/mm3 (4.8-10.8)
[2021-07-30 23:44] LABS: Alanine Aminotransferase 39 U/L (12-78); Albumin Level 4.5 g/dl (3.5-5.0); Albumin/Globulin Ratio 1.5 (1.1-1.8); Alkaline Phosphatase 49 U/L (38-126); Amylase 72 U/L (30-110); Aspartate Amino Transferase 28 U/L (14-36); Bilirubin,Total 0.3 mg/dl (0.2-1.3); Blood Urea Nitrogen 11 mg/dl (7-17); Calcium 9.3 mg/dl (8.4-10.2); Carbon Dioxide 25 mmol/L (22.0-30.0); Chloride 103 mmol/L (98-107); Creatinine Clearance Estimated 123 mL/min (50-200); Estimated Glomerular Filt Rate 126 ml/min (>60); GFR (African American) 153 ML/MIN (>60); Globulin 3.1 g/dL (1.3-3.2); Glucose 109 mg/dl (74-100); Lipase 80 U/L (23-300); Sodium 138 mmol/L (136-145); Total Protein,Serum 7.6 g/dl (6.3-8.2)
[2021-07-30 23:45] LABS: Lactic Acid 1.5 mmol/L (0.7-2.1)
[2021-07-30 23:49] LABS: C-Reactive Protein 6.9 mg/L (0-4)
[2021-07-31 00:03] LABS: Procalcitonin 0.042 ng/mL (0.0-2.0)
[2021-07-31 00:06] LABS: Erythrocyte Sedimentation Rate 21 mm/hr (0-20)
--- NOTE | 2021-07-31 01:07 | HMH.EDNVD ---
ED Disposition Clinical Impression: Abdominal pain Qualifiers: Abdominal location: lower abdomen, unspecified Qualified Code(s): R10.30 - Lower abdominal pain, unspecified Disposition: Home, Self-Care Condition on Discharge: Good Instructions: DI for Acute Abdominal Pain Additional Instructions: see pcp for follow up Referrals: Provider,Referral, [Primary Care Provider] - - Critical Care Critical Care Time: No Attestation: On 07/30/21, the high probability of a clinically significant, sudden or life threatening deterioration of the following system(s) required my full and direct attention, intervention and personal management. The time I documented below is in addition to time spent performing reported procedures but includes the following listed in this critical care notation. Medical Decision Making - Medical Records Medical records reviewed: Yes: I reviewed the patient's medical records. - Roman Inquiry Pt receiving controlled substance: No Vital Signs: 07/30/21 21:32 Temperature 98.5 F Temperature Source Oral Pulse Rate [Left Radial] 89 Respiratory Rate 18 Blood Pressure [Right Arm] 136/83 Blood Pressure Mean [Right Arm] 100 02 Sat by Pulse Oximetry 99 Oxygen Delivery Method Room Air - Lab Data Lab results reviewed: Yes: I reviewed the patient's lab results. Lab Results 07/30/21 22:05: Urine Color Yellow, Urine Appearance Clear, Urine pH 7.0, Ur Specific [place] 1.010, Urine Protein Negative, Urine Glucose (UA) Negative, Urine Ketones Negative, Urine Blood Negative, Urine Nitrate Negative, Urine Bilirubin Negative, Urine Urobilinogen 0.2, Ur Leukocyte Esterase Trace, Urine WBC 3-5, Ur Squamous Epith Cells 5-10 07/30/21 22:05: Urine HCG, Qual Negative 07/30/21 23:10: Lactate 1.5 07/30/21 23:10: Procalcitonin 0.042 07/30/21 23:25: WBC 10.6, RBC 4.83, Hgb 15.0, Hct 44.7, MCV 92.6, MCH 31.1, MCHC 33.5, RDW 13.0, Plt Count 433 H, MPV 8.4, Neut % (Auto) 72.4, Lymph % (Auto) 20.9, Burke % (Auto) 4.0, Eos % (Auto) 1.6, Baso % (Auto) 1.1, Neut # (Auto) 7.7, Lymph # (Auto) 2.2, Burke # (Auto) 0.4, Eos # (Auto) 0.2, Baso # (Auto) 0.1 07/30/21 23:25: Sodium 138, Potassium 4.0, Chloride 103, Carbon Dioxide 25, Anion Gap 14.0, BUN 11, Creatinine 0.60, Estimated Creat Clear 123, Estimated GFR 126, Est GFR ( Amer) 153, Glucose 109 H, Calcium 9.3, Total Bilirubin 0.3, AST 28, ALT 39, Alkaline Phosphatase 49, C-Reactive Protein 6.9 H, Total Protein 7.6, Albumin 4.5, Globulin 3.1, Albumin/Globulin Ratio 1.5, Amylase 72, Lipase 80 07/30/21 23:25: ESR 21 H Result diagrams: 07/30/21 23:25 07/30/21 23:25 Orders (Tests/Meds): ED MEDICATIONS Generic Name Dose Route Start Last Admin Trade Name Freq PRN Reason Stop Dose Admin Acetaminophen/Codeine Phosphate 1 aimee 07/31/21 01:07 Acetaminophen 300mg W/Codeine 30mg Take Home Pack (6) PO 07/31/21 01:08 ONCE ONE Sodium Chloride 1,000 mls @ 999 mls/hr 07/30/21 23:15 07/30/21 23:05 Sod Chlor 0.9% 1000ml Bag IV 07/31/21 00:15 999 mls/hr .Q1H1M MARIA G Administration Discontinued Medications Generic Name Dose Route Start Last Admin Trade Name Freq PRN Reason Stop Dose Admin Iopamidol 75 ml 07/31/21 00:19 07/31/21 00:20 Iopamidol-370 (76%);100ml Bottle IV 07/31/21 00:20 75 ml ONCE ONE Administration Ketorolac Tromethamine 30 mg 07/30/21 23:02 07/30/21 23:05 Ketorolac 30mg/Ml Vial IV 07/30/21 23:03 30 mg ONCE ONE Administration Sodium Chloride 10 ml 07/31/21 00:19 07/31/21 00:20 Sodium Chloride 0.9% 10ml Syr (Rad Only) IV 07/31/21 00:20 10 ml ONCE ONE Administration - CT Data CT Scan: Abdomen, Pelvis Time Received: 01:[address] Reviewed: Yes: I have viewed the radiologist's interpretation Preliminary Findings: Normal/NAD Medical Decision Narrative: has acute abd pain but stable exam and labs and xray - nonspec etiology Nausea/Vomiting/Diarrhea HPI - General Chief complaint: Abdominal
[2021-07-31 01:11] VITALS: BP 136/83; PULSE 89; RESP 18; TEMP 36.9; O2SAT 99
--- NOTE | 2021-07-31 01:13 | PC.NURSE ---
PT REPORTS MILD PAIN. NO OTHER COMPLAINTS VOICED.
== END 2021-07-31 01:41 | disposition home or self-care (01) ==
PROVIDERS: Emergency Provider Emergency Medicine
DX: R10.32 Left lower quadrant pain (principal); R11.2 Nausea with vomiting, unspecified
CPT/HCPCS: 74177; 80053; 81001; 81025; 82150; 83605; 83690; 84145; 85025; 85651; 86140; 96365; 96375; 99284; J2405; Q9967

== ENCOUNTER 2021-09-03 18:16 | Emergency (ER) | payer MEDICAID, SELFPAY ==
[2021-09-03 18:35] VITALS: BP 127/90; PULSE 98; RESP 18; TEMP 37; O2SAT 95; BMI 47.8
--- NOTE | 2021-09-03 18:44 | HMH.EDUTC ---
[facility] – [place] Disposition Clinical Impression: Positive test Disposition: Home, Self-Care Condition on Discharge: Good Instructions: Weight Gain During , Skin: Glowing, Stretching, Darkening, and More, and Sleep: A Contradiction in Terms? Additional Instructions: Follow up with OBGYN for further treatment and evaluation Return if needed Straight to ER if any life threatening symptoms Referrals: Provider,Amarjit, MD [Primary Care Provider] - Sona Pearl MD [Staff Physician] - Tab Pope MD [Staff Physician] - Time of Disposition: 19:54 Medical Decision Making - Roman Inquiry Pt receiving controlled substance: No Roman was queried for this patient: No Vital Signs: 09/03/21 18:35 Temperature 98.6 F Temperature Source Oral Pulse Rate [Left] 98 H Respiratory Rate 18 Blood Pressure [Right Arm] 127/90 Blood Pressure Mean [Right Arm] 102 02 Sat by Pulse Oximetry 95 - Lab Data Lab results reviewed: Yes: I reviewed the patient's lab results. Lab Results 09/03/21 18:37: Tst Clinic Positive 09/03/21 19:00: Serum HCG, Qual Positive [facility] [place] HPI - General Stated complaint: proof of Time Seen by Provider: 09/03/21 18:45 Mode of Arrival: Ambulatory Source of Information: Patient, Significant Other Limitations: No Limitations Description of Symptoms (Recalled from Triage Doc. by RN): pt here for proof of , blood and urine HEENT Symptoms (Recalled from RN notes): No Resp Symptoms (Recalled from RN notes): No Skin Symptoms (Recalled from RN notes): No MS Symptoms (Recalled from RN notes): No Functional Status (Recalled from RN notes): wnl - History of Present Illness Provider Complaint: Patient states that she took 5 tests at home and they was positive however she wanted to come in and get tested here to see if she was positive on the clinic test - Related Data Home Medications Medication Instructions Recorded Confirmed Sertraline HCl [Zoloft] 25 mg PO DAILY 04/14/21 04/14/21 Allergies Allergy/AdvReac Type Severity Reaction Status Date / Time No Known Allergies Allergy Verified 12/28/20 21:12 - Worker's Comp Is this a Worker's Comp case?: No [facility] History - Hepatitis A Screen Attestation statement:: This patient has been screened for Hepatitis A risk factors. I have reviewed the patient's past medical history: Yes ROS Obtained: Yes All systems reviewed & no additional complaints, Yes Systems reviewed as appropriate & no additional complaints - Constitutional Constitutional: Reports system reviewed and no additional complaints, except as docu, Denies body ache, Denies chills, Denies fever(s) - ENT Ears, Nose, Mouth, and Throat: Reports system reviewed and no additional complaints, except as docu - Cardiovascular Cardiovascular: Reports system reviewed and no additional complaints, except as docu - Respiratory Respiratory: Reports system reviewed and no additional complaints, except as docu - Gastrointestinal Gastrointestingal: Reports: system reviewed and no additional complaints, except as docu - Genitourinary Female Genitourinary: Reports system reviewed and no additional complaints, except as docu, Reports absent period Physical Exam - General General appearance: alert, in no apparent distress - Respiratory Respiratory exam: Present: normal lung sounds bilaterally. Absent: respiratory distress - Cardiovascular Cardiovascular exam: Present: regular rate, normal rhythm. Absent: JVD - Abdominal Exam Abdominal exam: Present: soft, normal bowel sounds. Absent: distention, tenderness, guarding - Neurological Exam Neurological exam: Present: alert, oriented X3
[2021-09-03 19:10] LABS: UTC Pregnancy Test, Urine Positive (Negative)
[2021-09-03 19:35] LABS: HCG Qualitative, Serum Positive (Negative)
[2021-09-03 19:55] VITALS: BP 127/90; PULSE 98; RESP 18; TEMP 37
== END 2021-09-03 20:00 | disposition home or self-care (01) ==
PROVIDERS: Emergency Provider Nurse Practitioner
DX: Z32.01 Encounter for pregnancy test, result positive (principal)
CPT/HCPCS: 81025; 84703; 99212; G0463

== ENCOUNTER → 2021-09-06 09:18 | Outpatient (CLI) | payer MEDICAID, SELFPAY ==
[2021-09-06 10:20] LABS: HCG,Quantitative 37 mIU/ml (0-5.42)
== END ==
PROVIDERS: Visit Provider Obstetrics & Gynecology
DX: Z32.01 Encounter for pregnancy test, result positive (principal)
CPT/HCPCS: 36415; 84702

== ENCOUNTER → 2021-09-08 07:59 | Outpatient (CLI) | payer MEDICAID, SELFPAY ==
[2021-09-08 09:40] LABS: HCG,Quantitative 80 mIU/ml (0-5.42)
== END ==
PROVIDERS: Visit Provider Obstetrics & Gynecology
DX: Z32.01 Encounter for pregnancy test, result positive (principal)
CPT/HCPCS: 36415; 84702

== ENCOUNTER → 2021-09-15 08:05 | Outpatient (CLI) | payer MEDICAID, SELFPAY ==
[2021-09-15 09:26] LABS: HCG,Quantitative 2985 mIU/ml (0-5.42)
== END ==
PROVIDERS: Visit Provider Obstetrics & Gynecology
DX: Z34.90 Encounter for supervision of normal pregnancy, unspecified, unspecified trimester (principal)
CPT/HCPCS: 36415; 84702

== ENCOUNTER → 2021-09-21 08:05 | Outpatient (CLI) | payer MEDICAID, SELFPAY ==
[2021-09-21 08:54] LABS: Basophils # 0.1 K/mm3 (0-0.2); Basophils % 1.4 % (0.1-2.0); Eosinophils # 0.1 K/mm3 (0.0-0.4); Eosinophils % 1.1 % (0.1-12.0); Hematocrit 41.1 % (37.0-47.0); Hemoglobin 13.8 g/dL (12.2-16.2); Lymphocytes # 1.9 K/mm3 (0.7-4.5); Lymphocytes % 23.5 % (10-50); Mean Corpuscular HGB Conc 33.6 g/dL (31.8-35.4); Mean Corpuscular Hemoglobin 31.2 pg (27.0-31.2); Mean Corpuscular Volume 92.9 fl (81-99); Mean Platelet Volume 8.5 fl (7.4-10.4); Monocytes # 0.4 K/mm3 (0.1-1.0); Monocytes % 4.7 % (1.7-9.3); Neutrophils # 5.5 K/mm3 (1.8-7.8); Neutrophils % 69.4 % (37.0-80.0); Platelet Count 348 K/mm3 (142-424); Red Blood Count 4.43 M/mm3 (4.20-5.40); Red Cell Distribution Width 13.3 % (11.5-17.5)
--- NOTE | 2021-09-21 13:48 | US_ITS ---
FINAL REPORT TECHNIQUE: Sonographic images of the pelvis were obtained. CLINICAL HISTORY: Dates-- will repeat exam in 1 wk FINDINGS: The uterus is anteverted and anteflexed. Within the endometrial cavity, there is a gestational sac. There is a pole. [place]-rump length measures 0.39 cm which correlates to a 6 weeks 1 day gestation. Yolk sacs measures 4 mm which is normal. Unable to obtain heart rate but subtle cardiac motion was noted on real-time. The cervix is closed. The right ovary measures 3.1 x 1.5 x 1.5 cm. It is normal. The left ovary measures 3.1 x 3.6 x 2.8 cm. There is a 2.2 left ovarian cyst, likely corpus luteum cyst. Color imaging to the ovaries is normal. There is no free fluid. IMPRESSION: Single intrauterine gestation corresponding to 6 week 1 day with cardiac motion visualized although heart rate is difficult to measure, favor early gestation. Recommend short-term follow-up. Reviewed, Interpreted and Dictated by Ana Mckeon MD Transcribed by Gracie Hi Authenticated by Ana Mckeon MD on 09/21/2021 04:34:25 PM [facility]
[2021-09-22 09:29] LABS: HIV Screen 4th Generation wRfx Non Reactive (Non Reactive); Hepatitis B Surface Antigen Negative (Negative); Hepatitis C Antibody <0.1 s/co ratio (0.0-0.9)
[2021-09-22 11:19] LABS: Rapid Plasma Reagin Ab Titer Non Reactive (NonRea<1:1)
== END ==
PROVIDERS: Visit Provider Obstetrics & Gynecology
DX: Z34.90 Encounter for supervision of normal pregnancy, unspecified, unspecified trimester (principal)
CPT/HCPCS: 36415; 76801; 85025; 86592; 86703; 86762; 86850; 87340; 87380; G0432

== ENCOUNTER → 2021-09-28 09:56 | Outpatient (CLI) | payer MEDICAID, SELFPAY ==
--- NOTE | 2021-09-28 10:00 | US_ITS ---
FINAL REPORT CLINICAL HISTORY: dates FINDINGS: Sonographic images of the pelvis were obtained. A single, living intrauterine is noted. The cervix measures 2.35 cm. A yolk sac is present and measures 0.54 cm. [place] to rump length measures 0.82 cm which corresponds to 6 weeks 6 days gestation. Heartbeat is identified and measures 119 beats per minute. The right ovary is within normal limits. There is a 2.4 cm left ovarian cyst which may represent a corpus luteum cyst. IMPRESSION: Single, living, intrauterine gestation with 6 weeks 6 days gestational age. Reviewed, Interpreted and Dictated by Herrera Dunne III, MD Transcribed by Mahogany Bajwa Authenticated by Herrera Dunne III, MD on 09/28/2021 01:37:[address] [facility]
== END ==
PROVIDERS: Visit Provider Obstetrics & Gynecology
DX: Z34.90 Encounter for supervision of normal pregnancy, unspecified, unspecified trimester (principal)
CPT/HCPCS: 76801

== ENCOUNTER → 2021-10-18 11:46 | Outpatient (CLI) | payer MEDICAID, SELFPAY | PROVIDERS: Visit Provider Obstetrics & Gynecology | DX: Z34.80 Encounter for supervision of other normal pregnancy, unspecified trimester (principal) | CPT/HCPCS: 36415 ==

== ENCOUNTER → 2021-12-30 13:08 | Outpatient (CLI) | payer MEDICAID, SELFPAY ==
--- NOTE | 2021-12-30 13:11 | US_ITS ---
FINAL REPORT CLINICAL HISTORY: 20 week anatomy scan FINDINGS: There is a single live intrauterine gestation. Presentation is cephalic. The cervix is closed and measures 3.1 cm. Placenta is anterior, grade 1. movement is noted. The heart rate is detected measuring 136 beats per minute. Three-vessel cord with satisfactory umbilical cord insertion. Four-chamber heart is noted. Diaphragm is unremarkable. The bladder is unremarkable. ABDOMEN: The stomach is normal. There is mild prominence of the renal collecting systems of uncertain significance. SPINE: No anomalies identified. AMNIOTIC FLUID: Appropriate amount. MEASUREMENTS: ULTRASOUND AGE: 20 weeks 5 days. GESTATION AGE: 20 weeks 1 day. ESTIMATED WEIGHT: 373 g GROWTH PERCENTILE: 78 % BPD: 4.91 cm corresponding to 20 weeks 6 days. OFD: 6.22 cm corresponding to 20 weeks 6 days. HC: 17.60 cm corresponding to 20 weeks 1 day. AC: 15.07 cm corresponding to 20 weeks 3 days. FL: 3.59 cm corresponding to 21 weeks 3 days. CEREBELLUM: 1.91 cm corresponding to 19 weeks 5 days. HUMERUS: 3.29 cm corresponding to 21 weeks 1 day. HC/AC: 1.17 CI: 79% FL/BPD: 73% FL/AC: 24% IMPRESSION: Single living IUP with an ultrasound age of 20 weeks 5 days. Mild prominence of renal collecting systems of uncertain significance. Follow-up may be helpful. Reviewed, Interpreted and Dictated by Herrera Dunne III, MD Transcribed by Gracie Hi Authenticated and [facility]
== END ==
PROVIDERS: PCP Obstetrics & Gynecology; Visit Provider Obstetrics & Gynecology
DX: Z34.90 Encounter for supervision of normal pregnancy, unspecified, unspecified trimester (principal); Z3A.20 20 weeks gestation of pregnancy
CPT/HCPCS: 76811

== ENCOUNTER 2022-01-13 00:08 | Emergency (ER) | payer MEDICAID, SELFPAY ==
[2022-01-13 00:10] VITALS: BP 121/51; PULSE 99; RESP 16; TEMP 36.6; O2SAT 99; BMI 47.6
[2022-01-13 00:21] LABS: Microscopic, Urine URINE MICROSCOPIC (MICROSCOPIC)
[2022-01-13 00:23] LABS: Appearance,Urine SL CLOUDY (Clear); Bilirubin,Urine Negative (Negative); Blood, Urine Negative (Negative); Color,Urine YELLOW (Yellow); Glucose,Urine (UA) Negative (Negative); Ketones,Urine TRACE (Negative); Leukocyte Esterase,Urine 1+ (Negative); Nitrate,Urine Negative (Negative); PH,Urine 6.5 (5.0-8.5); Protein,Urine TRACE (Negative); Specific Gravity, Urine 1.025 (1.005-1.030)
[2022-01-13 00:28] LABS: Bacteria,Urine 2+ /lpf; Squamous Epithelial Cell,Urine 20-50 #/hpf (0-5)
[2022-01-13 00:30] VITALS: BP 122/53; PULSE 99; O2SAT 97
--- NOTE | 2022-01-13 00:31 | HMH.EDGENADL ---
Discharge Plan Disposition Patient Disposition: Home, Self-Care Condition: Good Prescriptions Prescriptions: No Action Classic 28 mg iron- 800 mcg tablet PO DAILY ondansetron 4 mg tablet,disintegrating 4 mg PO Q6H sertraline 25 MG tablet 25 mg PO DAILY Referrals Follow up/Referrals: Provider,Referral, [Primary Care Provider] - See instructions Activity Restrictions/Add. Instructions Additional Instructions/Restrictions: You have been evaluated for nausea and vomiting in . Please continue to monitor your symptoms closely. Eat small meals throughout the day. Stay hydrated. Take Tylenol for aches, pain, fever. Take Zofran for nausea. Avoid Motrin, ibuprofen while . Follow-up with your primary care doctor. Return to the emergency department at once for any new or worsening symptoms, cramping, bleeding, other concerns. Clinical Impressions Clinical Impression: Nausea/vomiting in Instructions Patient Instructions: DI for Hyperemesis Gravidarum Discharge ED Provider: Geeta Meyer Adult HPI General Chief complaint: Nausea/Vomiting/Diarrhea Stated complaint: Vomiting,fever,dizziness vision wierd Time Seen by Provider: 01/13/22 00:10 Mode of Arrival: Ambulatory Limitations: No Limitations Description of Symptoms (Recalled from ER Triage Doc. by RN): pt c/o n/v, ALVA, dizziness that started 3 day agp History of Present Illness HPI narrative: 21-year-old female presenting to the emergency department with nausea and vomiting. Symptoms started 3 days ago. She felt generally unwell, nauseous. She has had multiple episodes of emesis. Initially food staffs, now sour liquid. She tried taking Zofran this morning, did not help. Tried taking Tylenol earlier today, also without relief. Took a dose of ibuprofen prior to arrival. Now she feels weak, tired. She has a dull, throbbing headache. Feels lightheaded. No fevers, chills, cough, shortness of breath, sore throat. She is 23 weeks . Denies dysuria, hematuria. No lower abdominal pain, cramping, contractions. She has had her confirmed by ultrasound. Follows with an [employer] Related Data Home Medications Medication Instructions Recorded Confirmed sertraline 25 mg tablet 25 mg PO DAILY Anxiety 04/14/21 12/16/21 ondansetron 4 mg disintegrating 4 mg PO Q6H 10/08/21 12/16/21 tablet vits no.126-ferrous fum tab PO DAILY 10/08/21 12/16/21 28 mg iron-folic acid 800 mcg tablet (Classic ) Allergies Allergy/AdvReac Type Severity Reaction Status Date / Time No Known Allergies Allergy Verified 12/16/21 10:36 [facility] Social History Smoking Status: Never smoker alcohol intake: never substance use type: denies use current occupational status: unemployed Travel in the last 8 weeks: None ROS Obtained: Yes All systems reviewed & no additional complaints except as documented Constitutional Constitutional: Denies chills, Denies fever(s), Reports headache(s) and Reports malaise Eyes Eyes: Denies blurry vision and Denies loss of vision ENT Ears, Nose, Mouth, and Throat: Denies dizziness, Reports headache(s) and Denies sore throat Cardiovascular Cardiovascular: Denies chest pain, Denies dyspnea and Denies palpitations Respiratory Respiratory: Denies cough and Denies dyspnea Gastrointestinal Gastrointestingal: Reports nausea and vomiting; Denies abdominal pain Genitourinary Female Genitourinary: Denies dysuria, Denies flank pain and Denies hematuria Musculoskeletal Musculoskeletal: Denies back pain and Denies myalgias Integumentary/Breasts Skin/Breast: Denies lesions and Denies rash Neurologic Neurologic: Denies dizziness, Reports headache(s), Denies loss of vision and Reports other (lightheaded) Endocrine Endocrine: Denies palpitations Physical Exam General General appearance: alert and in no apparent distress Head Head exam: atraumatic and n
[2022-01-13 00:39] LABS: Coronavirus 19, PCR Not Detected (NotDetected); Influenza A, PCR Not Detected (NotDetected); Influenza B, PCR Not Detected (NotDetected)
[2022-01-13 00:42] LABS: Basophils # 0.1 K/mm3 (0-0.2); Basophils % 0.6 % (0.1-2.0); Eosinophils # 0.1 K/mm3 (0.0-0.4); Hematocrit 39.3 % (37.0-47.0); Hemoglobin 13.1 g/dL (12.2-16.2); Lymphocytes # 2.1 K/mm3 (0.7-4.5); Lymphocytes % 19.8 % (10-50); Mean Corpuscular HGB Conc 33.3 g/dL (31.8-35.4); Mean Corpuscular Hemoglobin 30.3 pg (27.0-31.2); Mean Corpuscular Volume 90.9 fl (81-99); Mean Platelet Volume 8.2 fl (7.4-10.4); Monocytes # 0.4 K/mm3 (0.1-1.0); Monocytes % 3.8 % (1.7-9.3); Neutrophils % 74.9 % (37.0-80.0); Platelet Count 342 K/mm3 (142-424); Red Blood Count 4.33 M/mm3 (4.20-5.40); Red Cell Distribution Width 13.4 % (11.5-17.5); White Blood Count 10.6 K/mm3 (4.8-10.8)
--- NOTE | 2022-01-13 00:48 | PC.NURSE ---
FHT 143
[2022-01-13 00:50] LABS: Chloride 104 mmol/L (98-107)
[2022-01-13 00:51] LABS: Potassium 3.6 mmoL/L (3.5-5.1); Sodium 136 mmol/L (136-145)
[2022-01-13 00:53] LABS: Alanine Aminotransferase 17 U/L (12-78); Albumin/Globulin Ratio 1.3 (1.1-1.8); Alkaline Phosphatase 54 U/L (38-126); Anion Gap 11.6 mEq/L (5-15); Aspartate Amino Transferase 25 U/L (14-36); Blood Urea Nitrogen 8 mg/dl (7-17); Carbon Dioxide 24 mmol/L (22.0-30.0); Creatinine Clearance Estimated 184 mL/min (50-200); Estimated Glomerular Filt Rate 201 ml/min (>60); GFR (African American) 244 ML/MIN (>60); Globulin 3.2 g/dL (1.3-3.2); Lipase 84 U/L (23-300); Total Protein,Serum 7.2 g/dl (6.3-8.2)
[2022-01-13 00:54] LABS: Calcium 8.6 mg/dl (8.4-10.2); Glucose 118 mg/dl (74-100)
[2022-01-13 01:00] VITALS: BP 124/60; PULSE 83; O2SAT 97
[2022-01-13 01:03] LABS: Bilirubin,Total < 0.1 mg/dl (0.2-1.3)
[2022-01-13 01:30] VITALS: PULSE 87; O2SAT 98
[2022-01-13 02:50] VITALS: BP 124/60; PULSE 85; RESP 16; TEMP 36.9; O2SAT 97
== END 2022-01-13 02:59 | disposition home or self-care (01) ==
PROVIDERS: Emergency Provider Emergency Medicine
DX: O21.2 Late vomiting of pregnancy (principal); Z3A.23 23 weeks gestation of pregnancy; Z20.822 Contact with and (suspected) exposure to COVID-19
CPT/HCPCS: 80053; 81001; 83690; 85025; 87086; 96361; 96374; 99283; C9803; J2405; U0003; U0005

== ENCOUNTER → 2022-01-31 08:19 | Outpatient (CLI) | payer MEDICAID, SELFPAY ==
[2022-01-31 09:28] LABS: Basophils # 0.2 K/mm3 (0-0.2); Basophils % 1.8 % (0.1-2.0); Eosinophils # 0.1 K/mm3 (0.0-0.4); Eosinophils % 0.7 % (0.1-12.0); Hematocrit 39.3 % (37.0-47.0); Hemoglobin 13.1 g/dL (12.2-16.2); Lymphocytes # 1.9 K/mm3 (0.7-4.5); Lymphocytes % 16.6 % (10-50); Mean Corpuscular HGB Conc 33.4 g/dL (31.8-35.4); Mean Corpuscular Hemoglobin 30.7 pg (27.0-31.2); Mean Corpuscular Volume 91.8 fl (81-99); Mean Platelet Volume 9.2 fl (7.4-10.4); Monocytes # 0.6 K/mm3 (0.1-1.0); Monocytes % 5.1 % (1.7-9.3); Neutrophils # 8.8 K/mm3 (1.8-7.8); Neutrophils % 75.8 % (37.0-80.0); Platelet Count 344 K/mm3 (142-424); Red Blood Count 4.28 M/mm3 (4.20-5.40); Red Cell Distribution Width 13.6 % (11.5-17.5); White Blood Count 11.6 K/mm3 (4.8-10.8)
[2022-01-31 10:04] LABS: Glucose,Fasting 87 mg/dl (74-100)
[2022-01-31 10:46] LABS: Glucose 1 Hour 130 mg/dL (74-100)
== END ==
PROVIDERS: Visit Provider Obstetrics & Gynecology
DX: Z34.90 Encounter for supervision of normal pregnancy, unspecified, unspecified trimester (principal)
CPT/HCPCS: 36415; 82951; 85025

== ENCOUNTER 2022-02-04 04:43 | Emergency (ER) | payer MEDICAID, SELFPAY ==
[2022-02-04] VITALS (8 sets, daily range): BP systolic 108–130; BP diastolic 50–85; PULSE 85–98; RESP 16–20; TEMP 36.6–36.7; O2SAT 96–98; BMI 46.9
--- NOTE | 2022-02-04 05:02 | HMH.EDGENADL ---
Discharge Plan Disposition Patient Disposition: Home, Self-Care Condition: Good Prescriptions Prescriptions: No Action Classic 28 mg iron- 800 mcg tablet 1 tab PO DAILY sertraline 25 MG tablet 25 mg PO DAILY Clinical Impressions Clinical Impression: High ankle sprain of left lower extremity Instructions Patient Instructions: Sprain Discharge ED Provider: Tracee Del Valle General Adult HPI General Chief complaint: Extremity Injury, Lower Stated complaint: AO 02/04/22 0350 Injury left ankle Time Seen by Provider: 02/04/22 05:02 Mode of Arrival: Wheelchair Source of Information: Patient Limitations: No Limitations Description of Symptoms (Recalled from ER Triage Doc. by RN): Patient states that at approx 0350 she was walking down her stairs and slipped on the last step. States when it happened she landed on her left ankle and hears a loud popping sound followed by severe pain. Is now unable to bear weight on that ankle. Of note, patient states that she is currently 26 weeks but reports that she did not injure anything other than her ankle. That she never lost her balance. History of Present Illness HPI narrative: Patient is a 22-year-old female at approximately 26 weeks gestation presenting with a chief complaint of left ankle pain. Patient states she was walking down the stairs and slipped on the last step and twisted her ankle. She did not fall to the ground, hit her head, lose consciousness or hit her abdomen. She denies any abdominal pain or vaginal bleeding. She is feeling her baby move. Also complains of nausea due to pain. Onset (ago): hour(s) Location: left and lower extremity Radiation: non-radiation Severity: severe Quality: sharp and constant Consistency: constant Relieving factors: immobilization Exacerbating factors: movement Associated symptoms: other (Nausea) Treatments prior to arrival: none Related Data Home Medications Medication Instructions Recorded Confirmed sertraline 25 mg tablet 25 mg PO DAILY Anxiety 04/14/21 02/04/22 vits no.126-ferrous fum 1 tab PO DAILY Supplement 10/08/21 02/04/22 28 mg iron-folic acid 800 mcg tablet (Classic ) Allergies Allergy/AdvReac Type Severity Reaction Status Date / Time No Known Allergies Allergy Verified 01/20/22 10:03 [facility] Social History Smoking Status: Never smoker alcohol intake: never substance use type: denies use current occupational status: unemployed Travel in the last 8 weeks: None ROS Obtained: Yes Systems reviewed as appropriate & no additional complaints except as documented Constitutional Constitutional: Denies malaise ENT Comments: Denies hitting her head or head injury Cardiovascular Cardiovascular: Denies chest pain and Denies chest pain at rest Respiratory Respiratory: Denies shortness of breath Gastrointestinal Gastrointestingal: Reports nausea; Denies abdominal pain or vomiting Genitourinary Female Genitourinary: Denies abnormal vaginal bleeding Musculoskeletal Musculoskeletal: Reports other Comments: Left ankle pain and swelling Integumentary/Breasts Comments: No abrasion, laceration or bruising Physical Exam General General appearance: alert Comment: Appears in pain Head Head exam: atraumatic, normocephalic and normal inspection Eye Eye exam: Present normal appearance, conjunctival redness and conjunctival injection ENT ENT exam: Present normal exam and normal oropharynx Neck Neck exam: Present normal inspection and full ROM Chest Chest inspection: Present normal inspection and symmetric chest wall rise Respiratory Respiratory exam: Present other (Normal respiratory effort) Cardiovascular Cardiovascular exam: Absent tachycardia Abdominal Exam Abdominal exam: Present soft; Absent tenderness Extremities Exam Extremities exam: Present other (Pain with palpation over the lateral a
--- NOTE | 2022-02-04 05:07 | XR_ITS ---
FINAL REPORT CLINICAL HISTORY: pain/injury FINDINGS: LEFT ANKLE: Three views of the left ankle were obtained. There are small calcifications lateral to the talus. The joint spaces and mortise are intact. There is lateral soft tissue swelling. IMPRESSION: Small calcifications lateral to the talus a may represent small avulsion fractures. Reviewed, Interpreted and Dictated by Herrera Dunne III, MD Transcribed by Chan Gramajo Authenticated and . [facility]
--- NOTE | 2022-02-04 06:09 | PC.NURSE ---
Pt/Visitor updated on POC and expected wait times. No needs or complaints voiced.
--- NOTE | 2022-02-04 06:58 | PC.NURSE ---
Pt up to bathroom with assistance from and use of wheelchair
--- NOTE | 2022-02-04 07:06 | PC.NURSE ---
Pt complaining of severe pain. Dr. Krause notified.
--- NOTE | 2022-02-04 07:56 | PC.NURSE ---
Spoke with Catina in rad to inquire on status of ankle xray reading. Was advised that it was still assigned to [facility] and that she would message them.
--- NOTE | 2022-02-04 08:34 | PC.NURSE ---
upon d/c pt states she is ok with receiving her morphine. new order placed per MD verbal order.
--- NOTE | 2022-02-04 08:35 | PC.NURSE ---
Pt has decided that she now wishes to have the dose of Morphine that MD initially ordered.
--- NOTE | 2022-02-04 08:41 | PC.NURSE ---
verified order with pharmacy about morphine r/t
== END 2022-02-04 08:57 | disposition home or self-care (01) ==
PROVIDERS: Emergency Provider Emergency Medicine
DX: S93.492A Sprain of other ligament of left ankle, initial encounter (principal); W18.49XA Other slipping, tripping and stumbling without falling, initial encounter; Z79.899 Other long term (current) drug therapy
CPT/HCPCS: 73610; 96372; 99283

== ENCOUNTER → 2022-02-17 13:47 | Outpatient (CLI) | payer MEDICAID, SELFPAY ==
--- NOTE | 2022-02-17 13:47 | US_ITS ---
FINAL REPORT CLINICAL HISTORY: Risk of a normally based on history or results of limited/standard ultrasound COMPARISON: 12/30/2021 FINDINGS: There is a single live intrauterine gestation. Presentation is cephalic. The cervix is closed and measures 3.2. Placenta is anterior and grade 1. movement is noted. Three-vessel cord with satisfactory umbilical cord insertion. Four-chamber heart is noted. brain and ventricles are unremarkable. Chest and diaphragm are unremarkable. ABDOMEN: There is persistent and stable prominence of the renal pelves bilaterally. Stomach is unremarkable. SPINE: No anomalies identified. Both arms and legs noted. AMNIOTIC FLUID: Appropriate amount. MEASUREMENTS: ULTRASOUND AGE: 27 weeks 4 days. GESTATION AGE: 27 weeks 2 days. ESTIMATED WEIGHT: 2 lb 5 oz GROWTH PERCENTILE: 35 % BPD: 6.97cm corresponding to 28 weeks 1 day. OFD: 9.17 cm corresponding to 28 weeks 2 days. HC: 25.59 cm corresponding to 27 weeks 6 days. AC: 22.69 cm corresponding to 27 weeks 1 day. FL: 5.05 cm corresponding to 27 weeks 1 day. HUMERUS: 4.68 cm corresponding to 27 weeks 5 days. HC/AC: 1.13 CI: 76 % FL/BPD: 72% FL/AC: 22% IMPRESSION: Single living IUP with an ultrasound age of 27 weeks 4 days. Stable but persistent prominence of the renal pelves bilaterally of uncertain significance. Reviewed, Interpreted and Dictated by Herrera Dunne III, MD Transcribed by Caryn Nathan Authenticated and [facility]
== END ==
PROVIDERS: Visit Provider Obstetrics & Gynecology
DX: Z34.90 Encounter for supervision of normal pregnancy, unspecified, unspecified trimester (principal); Z3A.23 23 weeks gestation of pregnancy
CPT/HCPCS: 76811

== ENCOUNTER 2022-03-02 21:48 | Outpatient (CLI) | payer MEDICAID, SELFPAY ==
[2022-03-02 22:35] VITALS: BP 133/78; PULSE 88; RESP 18; TEMP 36.7; O2SAT 99; BMI 48.3
[2022-03-02 22:43] LABS: Microscopic, Urine URINE MICROSCOPIC (MICROSCOPIC)
[2022-03-02 22:47] LABS: Appearance,Urine CLEAR (Clear); Bilirubin,Urine Negative (Negative); Blood, Urine Negative (Negative); Color,Urine YELLOW (Yellow); Glucose,Urine (UA) Negative (Negative); Ketones,Urine Negative (Negative); Leukocyte Esterase,Urine 1+ (Negative); Nitrate,Urine Negative (Negative); PH,Urine 7.5 (5.0-8.5); Protein,Urine Negative (Negative); Specific Gravity, Urine 1.015 (1.005-1.030); Urobilinogen,Urine 0.2 EU/dl (0.2)
[2022-03-02 22:58] LABS: Amphetamine/Metha Screen,Urine Negative ng/ml (<1000)
[2022-03-02 22:59] LABS: Barbiturates Screen,Urine Negative ng/ml (<200); Benzodiazepines Screen,Urine Negative ng/ml (<200)
[2022-03-02 23:00] LABS: Cannabinoid Screen,Urine Negative ng/ml (<50)
[2022-03-02 23:01] LABS: Cocaine Screen,Urine Negative ng/ml (<300); Methadone Screen,Urine Negative ng/ml (<300)
[2022-03-02 23:02] LABS: Opiate Screen,Urine Negative ng/ml (<300)
[2022-03-02 23:03] LABS: Phencyclidine Screen,Urine Negative ng/ml (<25)
[2022-03-02 23:15] LABS: Fetal Fibronectin (Rapid) Negative (Negative)
[2022-03-02 23:16] LABS: Bacteria,Urine Trace /lpf
== END 2022-03-02 23:30 | disposition home or self-care (01) ==
LOC: OBOUT 21:49 → OB 21:49
PROVIDERS: Visit Provider Obstetrics & Gynecology
DX: O26.893 Other specified pregnancy related conditions, third trimester (principal); Z3A.29 29 weeks gestation of pregnancy
CPT/HCPCS: 59025; 80305; 81001; 82731; 87086; G0463

== ENCOUNTER 2022-04-02 01:04 | Outpatient (CLI) | payer MEDICAID, SELFPAY ==
[2022-04-02 01:16] VITALS: BMI 49.4
[2022-04-02 01:25] LABS: Appearance,Urine SL CLOUDY (Clear); Bilirubin,Urine Negative (Negative); Blood, Urine Negative (Negative); Color,Urine YELLOW (Yellow); Glucose,Urine (UA) Negative (Negative); Ketones,Urine Negative (Negative); Leukocyte Esterase,Urine Negative (Negative); Microscopic, Urine URINE MICROSCOPIC (MICROSCOPIC); Nitrate,Urine Negative (Negative); PH,Urine 7.5 (5.0-8.5); Protein,Urine Negative (Negative); Urobilinogen,Urine 0.2 EU/dl (0.2)
[2022-04-02 01:32] LABS: Amorphous Sediment,Urine Trace /lpf
[2022-04-02 01:36] LABS: Barbiturates Screen,Urine Negative ng/ml (<200)
[2022-04-02 01:37] LABS: Benzodiazepines Screen,Urine Negative ng/ml (<200)
[2022-04-02 01:38] LABS: Amphetamine/Metha Screen,Urine Negative ng/ml (<1000); Cannabinoid Screen,Urine Negative ng/ml (<50)
[2022-04-02 01:39] LABS: Cocaine Screen,Urine Negative ng/ml (<300); Methadone Screen,Urine Negative ng/ml (<300)
[2022-04-02 01:40] LABS: Opiate Screen,Urine Negative ng/ml (<300)
[2022-04-02 01:41] LABS: Phencyclidine Screen,Urine Negative ng/ml (<25)
[2022-04-02 01:46] VITALS: BP 99/67; PULSE 89; RESP 18; TEMP 36.3; O2SAT 97; BMI 49.4
== END 2022-04-02 02:15 | disposition home or self-care (01) ==
LOC: OBOUT 01:06 → OB 01:07
PROVIDERS: Referring Provider Obstetrics & Gynecology; Visit Provider Nurse Practitioner Obstetrics & Gynecology
DX: O47.03 False labor before 37 completed weeks of gestation, third trimester (principal); Z3A.33 33 weeks gestation of pregnancy
CPT/HCPCS: 59025; 80305; 81001; G0463

== ENCOUNTER → 2022-04-07 12:50 | Outpatient (CLI) | payer MEDICAID, SELFPAY ==
--- NOTE | 2022-04-07 12:56 | US_ITS ---
FINAL REPORT CLINICAL HISTORY: sga FINDINGS: There is a single live intrauterine gestation. Presentation is cephalic. Placenta is anterior and grade 1. Cardiac activity is confirmed at 147 bpm. The fetus is active. The cervix measures 4.3 cm. Three-vessel cord with satisfactory umbilical cord insertion. Four-chamber heart is noted. brain and ventricles are unremarkable. Chest and diaphragm are unremarkable. ABDOMEN: Both kidneys are unremarkable. Stomach is unremarkable. SPINE: No anomalies identified. Both arms and legs noted. AMNIOTIC FLUID: Appropriate amount. MEASUREMENTS: ULTRASOUND AGE: 34 weeks 4 days. GESTATION AGE: 34 weeks 3 days. ESTIMATED WEIGHT: 2325 g GROWTH PERCENTILE: 32% BPD: 8.9 cm consistent with 36 weeks 1 days. OFD: 10.7 cm consistent with 34 weeks 2 days. HC: 31 cm consistent with 34 weeks 5 days. AC: 30 cm consistent with 34 weeks 0 days. FL: 6.4 cm consistent with 33 weeks 2 days. HC/AC: 1.03 CI: 83% FL/BPD: 72% FL/AC: 21% IMPRESSION: Single living IUP with an ultrasound age of 34 weeks 4 days. Reviewed, Interpreted and Dictated by Herrera Dunne III, MD Transcribed by Chan Gramajo Authenticated and . [facility]
== END ==
PROVIDERS: Visit Provider Obstetrics & Gynecology
DX: O36.5990 Maternal care for other known or suspected poor fetal growth, unspecified trimester, not applicable or unspecified (principal)
CPT/HCPCS: 76816

== ENCOUNTER 2022-04-08 11:51 | Outpatient (CLI) | payer MEDICAID, SELFPAY ==
[2022-04-08 12:25] VITALS: BP 112/76; PULSE 89; RESP 18; TEMP 36.6; O2SAT 99
[2022-04-08 12:35] VITALS: BP 123/72; PULSE 90; RESP 18
[2022-04-08 12:55] VITALS: BP 121/72; PULSE 89; RESP 18
[2022-04-08 13:15] VITALS: BP 117/76; PULSE 93
[2022-04-08 13:33] VITALS: BMI 49.7
[2022-04-08 13:35] VITALS: BP 177/72; PULSE 96
[2022-04-08 13:55] VITALS: BP 133/74; PULSE 87
[2022-04-08 15:05] LABS: Microscopic, Urine URINE MICROSCOPIC (MICROSCOPIC)
[2022-04-08 15:07] LABS: Appearance,Urine CLEAR (Clear); Bilirubin,Urine Negative (Negative); Blood, Urine Negative (Negative); Color,Urine YELLOW (Yellow); Glucose,Urine (UA) Negative (Negative); Ketones,Urine Negative (Negative); Leukocyte Esterase,Urine TRACE (Negative); Nitrate,Urine Negative (Negative); Protein,Urine Negative (Negative); Urobilinogen,Urine 0.2 EU/dl (0.2)
[2022-04-08 15:19] LABS: Benzodiazepines Screen,Urine Negative ng/ml (<200)
[2022-04-08 15:20] LABS: Amphetamine/Metha Screen,Urine Negative ng/ml (<1000)
[2022-04-08 15:21] LABS: Barbiturates Screen,Urine Negative ng/ml (<200); Cannabinoid Screen,Urine Negative ng/ml (<50)
[2022-04-08 15:22] LABS: Cocaine Screen,Urine Negative ng/ml (<300)
[2022-04-08 15:23] LABS: Methadone Screen,Urine Negative ng/ml (<300); Opiate Screen,Urine Negative ng/ml (<300)
[2022-04-08 15:24] LABS: Phencyclidine Screen,Urine Negative ng/ml (<25)
[2022-04-08 15:35] LABS: Bacteria,Urine Trace /lpf
[2022-04-08 16:50] VITALS: BMI 49.7
== END 2022-04-08 14:30 | disposition home or self-care (01) ==
LOC: OBOUT 11:53 → OB 11:53
PROVIDERS: Visit Provider Obstetrics & Gynecology
DX: O26.893 Other specified pregnancy related conditions, third trimester (principal); Z3A.34 34 weeks gestation of pregnancy
CPT/HCPCS: 59025; 80305; 81001

== ENCOUNTER 2022-04-13 10:09 | Outpatient (CLI) | payer MEDICAID, SELFPAY ==
[2022-04-13 10:37] VITALS: BMI 49.7
[2022-04-13 10:42] LABS: Microscopic, Urine URINE MICROSCOPIC (MICROSCOPIC)
[2022-04-13 10:56] LABS: Appearance,Urine CLEAR (Clear); Bilirubin,Urine Negative (Negative); Blood, Urine Negative (Negative); Color,Urine YELLOW (Yellow); Glucose,Urine (UA) Negative (Negative); Ketones,Urine Negative (Negative); Leukocyte Esterase,Urine 1+ (Negative); Nitrate,Urine Negative (Negative); Protein,Urine Negative (Negative); Urobilinogen,Urine 0.2 EU/dl (0.2)
[2022-04-13 10:59] VITALS: BP 120/72; PULSE 101; RESP 17; TEMP 36.6; O2SAT 95; BMI 49.7
[2022-04-13 11:06] LABS: Bacteria,Urine 1+ /lpf; WBC,Urine Occasional #/hpf (0-3)
[2022-04-13 11:07] LABS: Opiate Screen,Urine Negative ng/ml (<300)
[2022-04-13 11:08] LABS: Phencyclidine Screen,Urine Negative ng/ml (<25)
[2022-04-13 11:15] LABS: Amphetamine/Metha Screen,Urine Negative ng/ml (<1000)
[2022-04-13 11:16] LABS: Barbiturates Screen,Urine Negative ng/ml (<200); Benzodiazepines Screen,Urine Negative ng/ml (<200)
[2022-04-13 11:17] LABS: Cannabinoid Screen,Urine Negative ng/ml (<50)
[2022-04-13 11:18] LABS: Cocaine Screen,Urine Negative ng/ml (<300); Methadone Screen,Urine Negative ng/ml (<300)
== END 2022-04-13 11:27 | disposition home or self-care (01) ==
LOC: OBOUT 10:11 → OB 10:12
PROVIDERS: Visit Provider Obstetrics & Gynecology
DX: O26.893 Other specified pregnancy related conditions, third trimester (principal); Z3A.35 35 weeks gestation of pregnancy
CPT/HCPCS: 59025; 80305; 81001; 87086; G0463

== ENCOUNTER → 2022-04-14 09:32 | Outpatient (CLI) | payer MEDICAID, SELFPAY | PROVIDERS: PCP Obstetrics & Gynecology; Visit Provider Obstetrics & Gynecology | DX: Z34.90 Encounter for supervision of normal pregnancy, unspecified, unspecified trimester (principal) | CPT/HCPCS: 86403 ==

== ENCOUNTER 2022-04-17 17:42 | Outpatient (CLI) | payer MEDICAID, SELFPAY ==
[2022-04-17 18:07] VITALS: BMI 49.7
[2022-04-17 18:10] VITALS: BP 121/74; PULSE 100; RESP 18; TEMP 36.4; O2SAT 98; BMI 49.7
[2022-04-17 18:13] LABS: Microscopic, Urine URINE MICROSCOPIC (MICROSCOPIC)
[2022-04-17 18:18] LABS: Appearance,Urine CLEAR (Clear); Bilirubin,Urine Negative (Negative); Blood, Urine Negative (Negative); Color,Urine YELLOW (Yellow); Glucose,Urine (UA) Negative (Negative); Ketones,Urine TRACE (Negative); Leukocyte Esterase,Urine 1+ (Negative); Nitrate,Urine Negative (Negative); Protein,Urine TRACE (Negative); Specific Gravity, Urine 1.025 (1.005-1.030); Urobilinogen,Urine 0.2 EU/dl (0.2)
[2022-04-17 18:29] LABS: Barbiturates Screen,Urine Negative ng/ml (<200)
[2022-04-17 18:30] LABS: Benzodiazepines Screen,Urine Negative ng/ml (<200)
[2022-04-17 18:31] LABS: Amphetamine/Metha Screen,Urine Negative ng/ml (<1000); Cannabinoid Screen,Urine Negative ng/ml (<50)
[2022-04-17 18:32] LABS: Cocaine Screen,Urine Negative ng/ml (<300)
[2022-04-17 18:33] LABS: Methadone Screen,Urine Negative ng/ml (<300); Opiate Screen,Urine Negative ng/ml (<300)
[2022-04-17 18:34] LABS: Phencyclidine Screen,Urine Negative ng/ml (<25)
== END 2022-04-17 20:14 | disposition home or self-care (01) ==
LOC: OBOUT 17:43 → OB 17:44
PROVIDERS: Visit Provider Obstetrics & Gynecology
DX: O47.03 False labor before 37 completed weeks of gestation, third trimester (principal); Z3A.35 35 weeks gestation of pregnancy
CPT/HCPCS: 59025; 80305; 81001; 87086; 96365; G0463

== ENCOUNTER 2022-04-26 22:51 | Outpatient (CLI) | payer MEDICAID, SELFPAY ==
[2022-04-26 23:19] VITALS: BP 117/71; PULSE 106; RESP 18; TEMP 36.5; O2SAT 96; BMI 50.5
[2022-04-26 23:35] LABS: Microscopic, Urine URINE MICROSCOPIC (MICROSCOPIC)
[2022-04-26 23:42] LABS: Appearance,Urine CLEAR (Clear); Bilirubin,Urine Negative (Negative); Blood, Urine Negative (Negative); Color,Urine YELLOW (Yellow); Glucose,Urine (UA) Negative (Negative); Ketones,Urine Negative (Negative); Leukocyte Esterase,Urine 2+ (Negative); Nitrate,Urine Negative (Negative); PH,Urine 6.5 (5.0-8.5); Protein,Urine TRACE (Negative); Specific Gravity, Urine 1.025 (1.005-1.030); Urobilinogen,Urine 0.2 EU/dl (0.2)
[2022-04-26 23:52] LABS: Bacteria,Urine Trace /lpf
[2022-04-26 23:53] LABS: Fetal Membrane Rupture (Rapid) Negative (Negative)
[2022-04-26 23:54] LABS: Amphetamine/Metha Screen,Urine Negative ng/ml (<1000)
[2022-04-26 23:55] LABS: Barbiturates Screen,Urine Negative ng/ml (<200); Benzodiazepines Screen,Urine Negative ng/ml (<200)
[2022-04-26 23:56] LABS: Cannabinoid Screen,Urine Negative ng/ml (<50)
[2022-04-26 23:57] LABS: Cocaine Screen,Urine Negative ng/ml (<300); Methadone Screen,Urine Negative ng/ml (<300)
[2022-04-26 23:58] LABS: Opiate Screen,Urine Negative ng/ml (<300)
[2022-04-26 23:59] LABS: Phencyclidine Screen,Urine Negative ng/ml (<25)
== END 2022-04-27 01:10 | disposition home or self-care (01) ==
LOC: OBOUT 22:53 → OB 22:55
PROVIDERS: Visit Provider Obstetrics & Gynecology
DX: O26.893 Other specified pregnancy related conditions, third trimester (principal); Z3A.37 37 weeks gestation of pregnancy
CPT/HCPCS: 59025; 80305; 81001; 84112; 87086; 96365; G0463

== ENCOUNTER 2022-05-01 14:57 | Inpatient (IN) | payer MEDICAID, SELFPAY ==
[2022-05-01 15:25] VITALS: BMI 51.0
[2022-05-01 16:51] LABS: Coronavirus 19, PCR Not Detected (NotDetected); Influenza A, PCR Not Detected (NotDetected); Influenza B, PCR Not Detected (NotDetected)
[2022-05-01 16:56] LABS: Basophils # 0.1 K/mm3 (0-0.2); Basophils % 0.5 % (0.1-2.0); Eosinophils % 0.2 % (0.1-12.0); Hematocrit 39.3 % (37.0-47.0); Hemoglobin 13.1 g/dL (12.2-16.2); Lymphocytes # 1.6 K/mm3 (0.7-4.5); Lymphocytes % 16.9 % (10-50); Mean Corpuscular HGB Conc 33.3 g/dL (31.8-35.4); Mean Corpuscular Hemoglobin 30.3 pg (27.0-31.2); Mean Corpuscular Volume 90.8 fl (81-99); Mean Platelet Volume 9.4 fl (7.4-10.4); Monocytes # 0.4 K/mm3 (0.1-1.0); Monocytes % 4.4 % (1.7-9.3); Neutrophils # 7.5 K/mm3 (1.8-7.8); Neutrophils % 78.1 % (37.0-80.0); Platelet Count 260 K/mm3 (142-424); Red Blood Count 4.33 M/mm3 (4.20-5.40); Red Cell Distribution Width 13.9 % (11.5-17.5); White Blood Count 9.6 K/mm3 (4.8-10.8)
[2022-05-01 17:20] LABS: Alanine Aminotransferase 16 U/L (12-78); Anion Gap 10.5 mEq/L (5-15); Aspartate Amino Transferase 20 U/L (14-36); Blood Urea Nitrogen 10 mg/dl (7-17); Calcium 8.5 mg/dl (8.4-10.2); Carbon Dioxide 19 mmol/L (22.0-30.0); Chloride 109 mmol/L (98-107); Creatinine Clearance Estimated 146 mL/min (50-200); Estimated Glomerular Filt Rate 154 ml/min (>60); GFR (African American) 187 ML/MIN (>60); Glucose 95 mg/dl (74-100); Potassium 3.5 mmoL/L (3.5-5.1); Sodium 135 mmol/L (136-145); Uric Acid 4.8 mg/dl (2.5-6.2)
[2022-05-01 18:07] LABS: Activated Partial Thrombo Time 25.9 seconds (22.8-30.6); INR 0.86 (0.9-1.1); Prothrombin Time 9.4 seconds (10.1-12.5)
[2022-05-01 19:28] VITALS: BMI 51.0
[2022-05-01 19:56] LABS: D-Dimer 1.06 ug/mL (0.0-0.5)
[2022-05-01 20:30] VITALS: BP 139/69; RESP 17; TEMP 37.1
[2022-05-02] VITALS (8 sets, daily range): BP systolic 122–176; BP diastolic 71–102; PULSE 73–85; RESP 15–20; TEMP 35.9–37.3; O2SAT 97–99
--- NOTE | 2022-05-02 07:45 | P.CONPHA_ITS ---
Pharmacy Intervention Comments: MEDICATION RECONCILIATION COMPLETED ON PATIENT USING EXTERNAL FILL HISTORY FROM PHARMACY, LIST FROM LUMBER YARD WORKER OFFICE, AND CHRISTIAN REPORT. -YAZMIN DIEGO, PHARMD
--- NOTE | 2022-05-02 07:45 | HMH.PHAINT1 ---
Pharmacy Intervention Comments: MEDICATION RECONCILIATION COMPLETED ON PATIENT USING EXTERNAL FILL HISTORY FROM PHARMACY, LIST FROM LINUX SERVER ADMINISTRATOR OFFICE, AND CHRISTIAN REPORT. -YAZMIN DIEGO, PHARMD
--- NOTE | 2022-05-02 09:23 | EXP.HP ---
History of Present Illness *Admission Date: 05/01/22 *Reason for visit:: Induction of labor *History of present illness: and 22 yo G1 @ 38 2/7 GINA 05/06/22; dating by 05/07 ultrasound care at [facility]--Dr. Pearl Intermittent elevation in blood pressure during last weeks of , with intermittent corresponding proteinuria BP at admission 139/69 and 137/86, but has risen overnight and ranging 140-150/90 today She also complains of RUQ pain starting around 8am today that she rates 7/10 and is not related to uterine contractions Urine protein trace at admission 05/01/22, with protein/creatinine 8.8 AST 20 ALT 16 Uric Acid 4.8 Platelets 260 Hgb 13.1 Fibrinogen initially reported as critical low 66, but repeat level was 597 and lab amended initial report from 05/01/22 that first value was actually 664 (not 66) issues significant for 1. maternal depression managed with zoloft 25mg daily 2. maternal obesity with current BMI 51 (BMI 48 pre-) 3. mild prominence of renal collecting systems noted on several ultrasound exams labs normal and 1 hr GTT 130 EFW at 34 weeks was at 32% She was admitted for prostaglandin ripening of cervix on 05/01/22 and given cytotec 50mg po q 4 hours IV Pitocin was started this morning monitoring has been reassuring with category 1 tracing Cervix 1-2/70/-2 Vertex presentation confirmed Amniotomy performed with clear fluid IUPC and FSE placed without difficulty or complication [facility] Disclaimer: The information contained in this section may have been updated after the patient was seen, as this information can be updated by other users. Medical History No significant past medical history No significant past medical history Family History Other No significant family history Social History (Updated 05/01/22 @ 19:28 by Alee Sutton RN) Smoking Status: Never smoker alcohol intake: never substance use type: denies use current occupational status: other Travel in the last 8 weeks: None Review of Systems Constitutional Constitutional: Denies chills, Denies fever(s) and Denies headache(s) ENT Ears, Nose, Mouth, and Throat: Denies headache(s) *Gastrointestinal Gastrointestinal: Reports abdominal pain *Genitourinary Genitourinary: Denies abnormal vaginal bleeding *Neurologic Neurologic: Denies headache(s) and Denies other visual disturbances Meds Home Medications and Allergies Home Medications Medication Instructions Recorded Confirmed Type vits no.126-ferrous fum 1 tab PO DAILY Supplement 10/08/21 05/02/22 History 28 mg iron-folic acid 800 mcg tablet (Classic ) sertraline 50 mg tablet 25 mg PO DAILY Anxiety 05/02/22 05/02/22 History New Prescriptions to Start Prescriptions: Allergies Allergy/AdvReac Type Severity Reaction Status Date / Time No Known Allergies Allergy Verified 04/28/22 08:34 Exam Data for Last 24 hours Vital signs and Labs for Last 24 Hours: Temp Pulse Resp BP 98.7 F 83 18 137/86 05/01/22 20:30 05/02/22 06:36 05/02/22 06:36 05/02/22 06:36 Laboratory Results - last 24 hr 05/01/22 15:45: SARS-CoV-2 (PCR) Not detected, Influenza A Untype (PCR) Not detected, Influenza Type B (PCR) Not detected 05/01/22 16:00: Blood Type A Positive, Antibody Screen Negative, Crossmatch (AHG) See Detail 05/01/22 16:00: WBC 9.6, RBC 4.33, Hgb 13.1, Hct 39.3, MCV 90.8, MCH 30.3, MCHC 33.3, RDW 13.9, Plt Count 260, MPV 9.4, Neut % (Auto) 78.1, Lymph % (Auto) 16.9, [place] % (Auto) 4.4, Eos % (Auto) 0.2, Baso % (Auto) 0.5, Neut # (Auto) 7.5, Lymph # (Auto) 1.6, [place] # (Auto) 0.4, Eos # (Auto) 0.0, Baso # (Auto) 0.1 05/01/22 16:00: PT 9.4 L, INR 0.86 L, APTT 25.9, Fibrinogen 66 L 05/01/22 16:00: D-Dimer 1.06 H, Sodium 135 L, Potassium 3.5, Chloride 109 H, Carbon Dioxide 19 L, Ani
[2022-05-02 09:24] LABS: Microscopic, Urine URINE MICROSCOPIC (MICROSCOPIC)
[2022-05-02 09:30] LABS: Bilirubin,Urine Negative (Negative); Blood, Urine Negative (Negative); Color,Urine YELLOW (Yellow); Glucose,Urine (UA) Negative (Negative); Ketones,Urine TRACE (Negative); Leukocyte Esterase,Urine TRACE (Negative); Nitrate,Urine Negative (Negative); PH,Urine 6.5 (5.0-8.5); Protein,Urine TRACE (Negative); Specific Gravity, Urine 1.025 (1.005-1.030)
[2022-05-02 09:32] LABS: Appearance,Urine Cloudy (Clear)
[2022-05-02 09:37] LABS: Creatinine,Urine Random 305 mg/dL (Not Estab.)
[2022-05-02 09:42] LABS: Amorphous Sediment,Urine 4+ /lpf; Bacteria,Urine 1+ /lpf; Microalbumin/Creatinine Ratio 8.8; Squamous Epithelial Cell,Urine Occasional #/hpf (0-5); WBC,Urine Occasional #/hpf (0-3)
[2022-05-02 09:43] LABS: Basophils # 0.2 K/mm3 (0-0.2); Basophils % 1.4 % (0.1-2.0); Eosinophils # 0.2 K/mm3 (0.0-0.4); Eosinophils % 1.9 % (0.1-12.0); Hematocrit 38.6 % (37.0-47.0); Lymphocytes % 18.1 % (10-50); Mean Corpuscular HGB Conc 33.6 g/dL (31.8-35.4); Mean Corpuscular Hemoglobin 30.3 pg (27.0-31.2); Mean Corpuscular Volume 90.2 fl (81-99); Mean Platelet Volume 9.4 fl (7.4-10.4); Monocytes # 0.4 K/mm3 (0.1-1.0); Monocytes % 3.7 % (1.7-9.3); Neutrophils # 8.1 K/mm3 (1.8-7.8); Platelet Count 250 K/mm3 (142-424); Red Blood Count 4.28 M/mm3 (4.20-5.40); White Blood Count 10.8 K/mm3 (4.8-10.8)
[2022-05-02 09:53] LABS: Alanine Aminotransferase 16 U/L (12-78); Albumin Level 3.3 g/dl (3.5-5.0); Albumin/Globulin Ratio 1.2 (1.1-1.8); Alkaline Phosphatase 106 U/L (38-126); Anion Gap 12.4 mEq/L (5-15); Aspartate Amino Transferase 20 U/L (14-36); Bilirubin,Total 0.2 mg/dl (0.2-1.3); Blood Urea Nitrogen 9 mg/dl (7-17); Calcium 8.9 mg/dl (8.4-10.2); Carbon Dioxide 18 mmol/L (22.0-30.0); Chloride 108 mmol/L (98-107); Creatinine Clearance Estimated 182 mL/min (50-200); Estimated Glomerular Filt Rate 200 ml/min (>60); GFR (African American) 242 ML/MIN (>60); Globulin 2.8 g/dL (1.3-3.2); Glucose 100 mg/dl (74-100); Potassium 3.4 mmoL/L (3.5-5.1); Sodium 135 mmol/L (136-145); Total Protein,Serum 6.1 g/dl (6.3-8.2); Uric Acid 4.3 mg/dl (2.5-6.2)
[2022-05-02 09:57] LABS: Activated Partial Thrombo Time 26.3 seconds (22.8-30.6); Fibrinogen 597 mg/dL (229.9-363.5); INR 0.85 (0.9-1.1); Prothrombin Time 9.3 seconds (10.1-12.5)
[2022-05-02 09:58] LABS: D-Dimer 1.04 ug/mL (0.0-0.5)
[2022-05-02 10:08] LABS: Fibrinogen 664 mg/dL (229.9-363.5)
--- NOTE | 2022-05-02 10:25 | P.PN_ITS ---
[facility] Disclaimer: The information contained in this section may have been updated after the patient was seen, as this information can be updated by other users. Medical History No significant past medical history No significant past medical history Family History Other No significant family history Social History (Updated 05/01/22 @ 19:28 by lAee Sutton RN) Smoking Status: Never smoker alcohol intake: never substance use type: denies use current occupational status: other Travel in the last 8 weeks: None [facility] Anesthesia Checklist Patient Identification Patient Identification: Arm Band Structural Data Admitted From: Home Planned Operative Procedure/s: Labor Epidural Consent for Planned Operative Procedure(s) Verified: Yes Verified Documents: Surgical Consent and History and Physical NPO Status Verified Time NPO: 00:00 Additional verifications Anesthesia Reactions: No Airway Assessment C-Spine Mobility Assessed: Yes TMJ Mobility Assessed: Yes Dentition: Good Dentition Neurological Assessment Level of Consciousness: Awake and Alert Anesthesia Plan Anesthesia Risk discussed: Yes Anesthesia Plan: Verified ASA Class: III Anesthesia Type: Epidural
--- NOTE | 2022-05-02 11:49 | P.PN_ITS ---
Labor Note Subjective: Date: 05/02/22 Time: 11:49 Comment:: comfortable with epidural NST showing decreased variability and repetitive late decelerations of heart rate cervix unchanged-- patient counseled to proceed with immediate delivery via c section for non- reassuring status Assessment: All Active Problems (Updated 05/02/22 @ 11:13 by Sona Pearl MD) Depression affecting (Acute) Gestational hypertension without significant proteinuria during in third trimester, antepartum (Acute) 38 weeks gestation of (Acute) Obesity affecting in third trimester (Acute) Hypertension during in third trimester (Acute) Pyelectasis of fetus on ultrasound (Acute) (Acute) PCOS (polycystic ovarian syndrome) (Acute) BMI 45.0-49.9, adult (Acute) Anxiety and depression (Acute)
[2022-05-02 13:12] LABS: Cord Blood PH 7.28 (7.35-7.45)
--- NOTE | 2022-05-02 14:31 | P.PNANES_ITS ---
[facility] Anesthesia Record Part I Anesthesia Record I Intake, IV Amount: 2,000 Estimated blood loss (mL): 600 Urine output (mL): 300 Blood Products used (#): none Blood Pressure: 158/93 SaO2: 99 Pulse Rate: 83 Respiratory Rate: 16 Temperature: 99.1 F Patient is:: Awake and Stable Stable to PACU at:: 14:05
--- NOTE | 2022-05-02 15:08 | P.PNANES_ITS ---
[facility] Anesthesia Record Part II Anesthesia Record Part II Discharge Time: 14:45 Destination: Obstetric PACU nurse assessment reviewed?: Yes Patient Condition:: Good Anesthesia Complications:: None Swallowing reflex intact?: Yes Cyanosis?: No Blood Pressure: 143/90 Pulse Rate: 76 Temperature: 99.1 F Mental Status: Alert & Oriented Pain level:: 0 Nausea and/or vomitting:: None Intake, IV Amount: 0
[2022-05-02 16:23] LABS: Microscopic, Urine URINE MICROSCOPIC (MICROSCOPIC)
[2022-05-02 16:37] LABS: Appearance,Urine CLEAR (Clear); Bilirubin,Urine Negative (Negative); Blood, Urine TRACE-I (Negative); Color,Urine YELLOW (Yellow); Glucose,Urine (UA) Negative (Negative); Ketones,Urine Negative (Negative); Leukocyte Esterase,Urine Negative (Negative); Nitrate,Urine Negative (Negative); Protein,Urine Negative (Negative); Specific Gravity, Urine 1.015 (1.005-1.030); Urobilinogen,Urine 0.2 EU/dl (0.2)
[2022-05-02 16:57] LABS: Squamous Epithelial Cell,Urine Occasional #/hpf (0-5)
[2022-05-02 16:58] LABS: Bacteria,Urine Trace /lpf
--- NOTE | 2022-05-02 17:51 | P.OP_ITS ---
Date of procedure: 05/02/22 Pre-op Diagnosis:: 1. 38 07/05 2. Gestational Hypertension 3. Non-reassuring heart tracing, remote from delivery 4. Maternal obesity Post-op Diagnosis:: Same Procedure performed:: Primary Low Transverse C Section Surgeon:: Sona Pearl MD SHEET ROCK APPLICATOR:: Severiano Eisenbergxu Anesthesia: epidural Estimated blood loss (mL): 600 Operative findings:: Vigorous female in vertex presentation No nuchal cord or meconium stained fluid present Operative note:: The patient was taken to the OR and adequate epidural anesthesia confirmed. She was prepped and draped in normal sterile fashion. A pfannenstiel skin incision was made with the scalpel 2cm above the pubic symphysis and carried down to the fascia. The fascia was incised in the midline and sharply dissected off the rectus muscles. The muscles were in the midline and the peritoneum was entered sharply and extended bluntly. The Chan-O self retaining retractor was placed in the abdomen and a bladder flap was created. The uterus was incised in the lower uterine segment in a transverse fashion and extended bluntly. The was delivered in controlled fashion, without complication or shoulder dystocia. No nuchal cord or meconium stained amniotic fluid was noted. The was vigorous at and handed to awaiting arabic linguist and nursing staff for evaluation after cord clamped and cut. Cord blood was collec adrianne and a cord segment was preserved. The placenta was manually extracted and noted to be intact. The uterus was repaired with 0-vicryl in a running/locked fashion. The bladder flap was closed with 2-0 vicryl in running fashion. Gelfoam was placed between uterine closure and bladder flap. The peritoneum was closed with 2-0 vicryl in a running fashion. The fascia was closed with #1 vicryl in a running fashion. The subcutaneous fat was closed with 2-0 vicryl in a running fashion. The skin was closed with 2-0 Stratafix in subcuticular fashion. The patient tolerated the procedure well. Sponge, lap, needle and instrument counts were correct x 2. TAP block was placed by anesthesia after conclusion of procedure. She was taken to PACU awake and in stable condition. Condition: stable Disposition: PACU Specimens:: cord blood for pH Complications:: none
[2022-05-03] VITALS (7 sets, daily range): BP systolic 123–133; BP diastolic 68–79; PULSE 77–106; RESP 18; TEMP 36.8–37.2; O2SAT 96–97
[2022-05-03 08:35] LABS: Hematocrit 33.2 % (37.0-47.0)
[2022-05-03 10:13] LABS: Hemoglobin 11.6 g/dL (12.2-16.2)
--- NOTE | 2022-05-03 13:38 | EXP.ACUTE.PN ---
Subjective *Date: 05/03/22 *Time: 13:38 Interval history: POD #1 Primary LTCS for non-reassurring status, remote from delivery She is doing well with no unusual complaints She is tolerating a regular diet, ambulating and voiding without difficulty Lochia is appropriate and she is asymptomatic with postop anemia Medical Exam Vital signs and Labs for Last 24 Hours: Vital Signs Temp Pulse Resp BP Pulse Ox 05/03/22 19:45 98.9 F 102 H 18 124/69 96 05/03/22 19:20 18 05/03/22 15:30 18 05/03/22 07:17 18 05/03/22 03:48 98.4 F 106 H 18 133/79 97 05/03/22 00:10 98.3 F 77 18 123/71 96 Laboratory Results - last 24 hr 05/03/22 08:21: Hgb 11.6 L D, Hct 33.2 L I & O for Labs for Last 24 Hours: Intake & Output 05/01/22 05/02/22 05/03/22 05/04/22 11:59 11:59 11:59 11:59 Intake Total 1999 / 1999 Output Total 400 / 400 Balance 1600 / 1600 Weight 288 lb Comment:: No acute distress Comment:: breathing unlabored Comment:: Regular rate, normal peripheral pulses Comments:: abdomen soft, non-distended Mild tenderness Comment:: uterine fundus firm below umbilicus Comment:: 1+ edema bilateral lower extremities Comment:: Incision dry/intact Assessment and Plan *Assessment and plan (1) 38 weeks gestation of : Status: Acute Category: Medical Code(s): Z3A.38 - 38 weeks gestation of (2) Gestational hypertension without significant proteinuria during in third trimester, antepartum: Status: Acute Category: Medical Code(s): O13.3 - Gestational [-induced] hypertension without significant proteinuria, third trimester (3) Depression affecting : Status: Acute Category: Medical Code(s): O99.340 - Other mental disorders complicating , unspecified trimester; F32.A - Depression, unspecified (4) Obesity affecting in third trimester: Status: Acute Category: Medical Code(s): O99.213 - Obesity complicating , third trimester (5) Non-reassuring electronic monitoring tracing: Status: Acute Category: Medical Code(s): O36.8390 - Maternal care for abnormalities of the heart rate or rhythm, unspecified trimester, not applicable or unspecified (6) Delivered by section: Status: Acute Category: Medical Code(s): Z38.01 - Single liveborn , delivered by Plan Routine postop/ care Advance care as tolerated PO ferrous sulfate supplementation Continue zoloft Possible discharge home tomorrow
[2022-05-04 03:40] VITALS: BP 121/72; PULSE 108; RESP 18; TEMP 36.4; O2SAT 97
[2022-05-04 08:00] VITALS: BP 137/77; PULSE 105; RESP 18; TEMP 36.7; O2SAT 99
--- NOTE | 2022-05-04 08:27 | EXP.DC.SUM ---
General Admission date:: 05/01/22 Discharge date: 05/04/22 HPI HPI HPI: and 22 yo G1 @ 38 06/07 GINA 05/06/22; dating by 05/07 ultrasound care at [facility]--Dr. Pearl Intermittent elevation in blood pressure during last weeks of , with intermittent corresponding proteinuria BP at admission 139/69 and 137/86, but has risen overnight and ranging 140-150/90 today She also complains of RUQ pain starting around 8am today that she rates 7/10 and is not related to uterine contractions Urine protein trace at admission 05/01/22, with protein/creatinine 8.8 AST 20 ALT 16 Uric Acid 4.8 Platelets 260 Hgb 13.1 Fibrinogen initially reported as critical low 66, but repeat level was 597 and lab amended initial report from 05/01/22 that first value was actually 664 (not 66) issues significant for 1. maternal depression managed with zoloft 25mg daily 2. maternal obesity with current BMI 51 (BMI 48 pre-) 3. mild prominence of renal collecting systems noted on several ultrasound exams labs normal and 1 hr GTT 130 EFW at 34 weeks was at 32% She was admitted for prostaglandin ripening of cervix on 05/01/22 and given cytotec 50mg po q 4 hours IV Pitocin was started this morning monitoring has been reassuring with category 1 tracing Cervix 1-2/70/-2 Vertex presentation confirmed Amniotomy performed with clear fluid IUPC and FSE placed without difficulty or complication Hospital Course Hospital Course Hospital Course: She was started on IV oxytocin was 1 cm dilated. She had decreased aekb-ju-alyb variability in the heart rate tracing and recurrent decelerations of the heart rate. Since she had not progressed at all and there was a nonreassuring heart rate tracing she was taken for a primary lower segment transverse section. She delivered a liveborn female child at 12:57 PM in the afternoon of May 02, 2022. The baby had Apgars of 7 at 1 minute and 7 at 5 minutes. She has done well postoperatively and has remained afebrile without her hospitalization. She is eating and drinking and ambulating. Her pain is well controlled. She has a Rh+ blood, she is rubella immune and was group B streptococcus negative. Her blood pressure has been reasonably well controlled. She is breast-feeding and bottlefeeding. She is discharged home to follow-up with Dr. Pearl in approximately 2 weeks time. She will continue with her vitamins and iron. She will continue with ibuprofen and Tylenol. She was given a prescription for Percocet 5/325 number 20 tablets. She was given the usual instructions with respect to limiting her activity, driving and sexual activity. She was given instructions with respect to wound care. Her condition on discharge is stable and improved. Exam Data for Last 24 hours Vital signs and Labs for Last 24 Hours: Temp Pulse Resp BP Pulse Ox 98.0 F 105 H 18 137/77 99 05/04/22 08:00 05/04/22 08:00 05/04/22 08:00 05/04/22 08:00 05/04/22 08:00 Laboratory Results - last 24 hr 05/03/22 08:21: Hgb 11.6 L D, Hct 33.2 L I & O for Last 24 hours: Intake & Output 05/01/22 05/02/22 05/03/22 05/04/22 11:59 11:59 11:59 11:59 Intake Total 1999 / 1999 Output Total 400 / 400 Balance 1600 / 1600 Weight 288 lb Constitutional Constitutional: no acute distress *Routine HEENT Exam Head: Present normocephalic *Routine Respiratory Exam Respiratory: Present normal respiratory effort; Absent accessory muscle use Results Data Completed and Pending Labs on day of discharge: Labs from last 24 hours 05/03/22 08:21 Hgb 11.6 L D Hct 33.2 L DS: Diagnosis Discharge Diagnosis (1) 38 weeks gestation of : Status: Acute (2) Gestational hypertension without significant proteinuria during in third trimester, antepartum: Status: Acute (3) Depression affecting : Status: Acute (4) Obe
== END 2022-05-04 11:40 | disposition home or self-care (01) | DRG 788 ==
LOC: OB 14:58
PROVIDERS: Admitting Provider Obstetrics & Gynecology; PCP Obstetrics & Gynecology; Visit Provider Obstetrics & Gynecology
PROC: 10D00Z1 Extraction of Products of Conception, Low, Open Approach (ICD-10-PCS; CPT 59514; principal; 2022-05-02 12:30)
DX: O13.4 Gestational [pregnancy-induced] hypertension without significant proteinuria, complicating childbirth (principal); O76 Abnormality in fetal heart rate and rhythm complicating labor and delivery; Z3A.38 38 weeks gestation of pregnancy; Z37.0 Single live birth; F32.A Depression, unspecified; E66.01 Morbid (severe) obesity due to excess calories; O99.344 Other mental disorders complicating childbirth
CPT/HCPCS: 59514; 36415; 59025; 80048; 80053; 81001; 82043; 82570; 82800; 84450; 84460; 84550; 85014; 85018; 85025; 85378; 85384; 85610; 85730; 86850; 94761; C1758; C9290; C9803; G0283; J2405; U0003; U0005

== ENCOUNTER → 2022-05-12 17:21 | Outpatient (CLI) | payer MEDICAID, SELFPAY | PROVIDERS: Visit Provider Obstetrics & Gynecology | DX: T81.49XA Infection following a procedure, other surgical site, initial encounter (principal); T14.8XXA Other injury of unspecified body region, initial encounter; B95.8 Unspecified staphylococcus as the cause of diseases classified elsewhere | CPT/HCPCS: 87070; 87077; 87186; 87205 ==

== ENCOUNTER → 2022-10-28 16:12 | Outpatient (CLI) | payer MEDICAID, SELFPAY ==
[2022-10-28 16:59] LABS: Basophils # 0.1 K/mm3 (0-0.2); Basophils % 0.5 % (0.1-2.0); Eosinophils # 0.1 K/mm3 (0.0-0.4); Hematocrit 41.7 % (37.0-47.0); Hemoglobin 13.6 g/dL (12.2-16.2); Lymphocytes # 1.8 K/mm3 (0.7-4.5); Mean Corpuscular HGB Conc 32.7 g/dL (31.8-35.4); Mean Corpuscular Hemoglobin 29.1 pg (27.0-31.2); Monocytes # 0.4 K/mm3 (0.1-1.0); Monocytes % 4.2 % (1.7-9.3); Neutrophils # 6.8 K/mm3 (1.8-7.8); Neutrophils % 74.2 % (37.0-80.0); Platelet Count 343 K/mm3 (142-424); Red Blood Count 4.69 M/mm3 (4.20-5.40); Red Cell Distribution Width 13.5 % (11.5-17.5); White Blood Count 9.2 K/mm3 (4.8-10.8)
[2022-10-28 17:19] LABS: Alanine Aminotransferase 33 U/L (12-78); Albumin Level 4.5 g/dl (3.5-5.0); Albumin/Globulin Ratio 1.6 (1.1-1.8); Alkaline Phosphatase 96 U/L (38-126); Anion Gap 17.4 mEq/L (5-15); Aspartate Amino Transferase 26 U/L (14-36); Bilirubin,Total 0.4 mg/dl (0.2-1.3); Blood Urea Nitrogen 14 mg/dl (7-17); Calcium 9.2 mg/dl (8.4-10.2); Carbon Dioxide 23 mmol/L (22.0-30.0); Chloride 103 mmol/L (98-107); Cholesterol 173 mg/dl (140-200); Estimated Glomerular Filt Rate 125 ml/min (>60); GFR (African American) 151 ML/MIN (>60); Globulin 2.9 g/dL (1.3-3.2); Glucose 91 mg/dl (74-100); HDL Cholesterol 58 mg/dl (40-60); Potassium 4.4 mmoL/L (3.5-5.1); Sodium 139 mmol/L (136-145); Total Protein,Serum 7.4 g/dl (6.3-8.2); Triglycerides 182 mg/dl (30-150); VLDL Cholesterol 36 mg/dL (0-40)
[2022-10-28 17:29] LABS: Hemoglobin A1C 5.4 % (4.0-6.0)
[2022-10-28 17:30] LABS: Direct LDL Cholesterol 79.43 mg/dL (100-129)
[2022-10-28 17:35] LABS: 25-OH Vitamin D, Total 24.1 ng/mL (30-100)
[2022-10-28 17:49] LABS: Thyroid Stimulating Hormone 1.32 uIU/mL (0.465-4.68)
[2022-10-28 18:08] LABS: Vitamin B12 360 pg/mL (239-931)
== END ==
PROVIDERS: PCP Physician Assistant; Visit Provider Physician Assistant
DX: Z00.00 Encounter for general adult medical examination without abnormal findings (principal); Z83.3 Family history of diabetes mellitus; E55.9 Vitamin D deficiency, unspecified; E66.01 Morbid (severe) obesity due to excess calories; Z68.42 Body mass index [BMI] 45.0-49.9, adult
CPT/HCPCS: 36415; 80053; 80061; 82306; 82607; 83036; 84443; 85025

== ENCOUNTER 2023-04-22 12:29 | Emergency (ER) | payer MEDICAID, SELFPAY ==
[2023-04-22 15:25] VITALS: BP 131/89; PULSE 90; RESP 21; TEMP 36.8; O2SAT 100; BMI 45.8
--- NOTE | 2023-04-22 15:46 | EXP.UTC ---
Discharge Plan Disposition Patient Disposition: Home, Self-Care Condition: Good Prescriptions Prescriptions: No Action lisdexamfetamine [Vyvanse] 30 mg capsule 30 mg PO DAILY Patient Comments: TAKE 1 CAPSULE BY MOUTH ONCE DAILY IN THE MORNING FOR 30 DAYS lisdexamfetamine 40 mg capsule 40 mg PO DAILY Patient Comments: TAKE 1 CAPSULE BY MOUTH ONCE DAILY IN THE MORNING Referrals Follow up/Referrals: Susana Roman APRN [Primary Care Provider] - See instructions Clinical Impressions Clinical Impression: Acute upper respiratory infection Instructions Patient Instructions: DI for Viral Upper Respiratory Infection -- Adult Discharge ED Provider: Peggy Watt [facility] [place] [facility] [place] General Stated complaint: sore throat, cough, fever/chills, vomiting/diarrhe Mode of Arrival: Ambulatory Source of Information: Patient Limitations: No Limitations Time Seen by Provider: 04/22/23 15:45 Description of Symptoms (Recalled from Triage Doc. by RN): PATIENT C/O CHILLS, FEVER, VOMITING, COUGH AND SORE THROAT X 2 DAYS HEENT Symptoms (Recalled from RN notes): Yes Resp Symptoms (Recalled from RN notes): Yes Skin Symptoms (Recalled from RN notes): No MS Symptoms (Recalled from RN notes): No Functional Status (Recalled from RN notes): WNL History of Present Illness Provider Complaint: Pt reports that she has had a sore throat, fever, chills, and vomiting for 2 days. Related Data Home Medications Medication Instructions Recorded Confirmed lisdexamfetamine 30 mg capsule 30 mg PO DAILY 04/22/23 04/22/23 (Vyvanse) lisdexamfetamine 40 mg capsule 40 mg PO DAILY 04/22/23 04/22/23 Allergies Allergy/AdvReac Type Severity Reaction Status Date / Time No Known Allergies Allergy Verified 06/20/22 13:15 Worker's Comp Is this a Worker's Comp case?: No [facility] Disclaimer: The information contained in this section may have been updated after the patient was seen, as this information can be updated by other users. Medical History (Updated 04/22/23 @ 16:05 by Peggy Watt APRN) Delivered by section Nexplanon insertion No significant past medical history No significant past medical history Family History Other No significant family history Social History Smoking Status: Never smoker alcohol intake: never substance use type: denies use current occupational status: other Travel in the last 8 weeks: None ROS Obtained: Yes All systems reviewed & no additional complaints except as documented Constitutional Constitutional: Reports system reviewed and no additional complaints, except as documented, Reports chills, Reports fever(s) and Reports malaise Eyes Eyes: Reports system reviewed and no additional complaints, except as documented ENT Ears, Nose, Mouth, and Throat: Reports system reviewed and no additional complaints, except as documented, Reports nasal congestion, Reports nasal discharge, Reports odynophagia, Reports sinus pressure and Reports sore throat Cardiovascular Cardiovascular: Reports system reviewed and no additional complaints, except as documented Respiratory Respiratory: Reports system reviewed and no additional complaints, except as documented and Reports non-productive cough Gastrointestinal Gastrointestingal: Reports system reviewed and no additional complaints, except as documented and odynophagia Genitourinary Female Genitourinary: Reports system reviewed and no additional complaints, except as documented Musculoskeletal Musculoskeletal: Reports system reviewed and no additional complaints, except as documented Integumentary/Breasts Skin/Breast: Reports system reviewed and no additional complaints, except as documented Neurologic Neurologic: Reports system reviewed and no additional complaints, except as documented Endocrine Endocrine: Reports system reviewed a
[2023-04-22 15:50] LABS: UTC Influenza A Antigen Negative (Negative); UTC Strep Screen (Rapid) Negative (Negative)
[2023-04-22 15:51] LABS: UTC Influenza B Antigen Negative (Negative)
[2023-04-22 16:10] VITALS: BP 131/89; PULSE 90; RESP 21; TEMP 36.8; O2SAT 100
[2023-04-22 16:21] LABS: Adenovirus,PCR Not Detected (NotDetected); Bordetella Pertussis Not Detected (NotDetected); Chlamydophila Pneumoniae, PCR Not Detected (NotDetected); Coronavirus 19, PCR Not Detected (NotDetected); Coronavirus 229E Not Detected (NotDetected); Coronavirus NL63 Not Detected (NotDetected); Coronavirus OC43 Not Detected (NotDetected); Coronovirus HKU1,PCR Not Detected (NotDetected); Human Metapneumovirus Not Detected (NotDetected); Influenza A, PCR Not Detected (NotDetected); Influenza AH1, 2009 Not Detected (NotDetected); Influenza AH1, PCR Not Detected (NotDetected); Influenza B, PCR Not Detected (NotDetected); Mycoplasma Pneumoniae, PCR Not Detected (NotDetected); Parainfluenza 1, PCR Not Detected (NotDetected); Parainfluenza 2, PCR Not Detected (NotDetected); Parainfluenza 3, PCR Not Detected (NotDetected); Parainfluenza 4, PCR Not Detected (NotDetected); Respiratory Syncytial Virus Not Detected (NotDetected)
[2023-04-22 20:48] LABS: Rhinovirus/Enterovirus Detected (NotDetected)
[2023-04-23 08:40] LABS: Influenza AH3,PCR Detected (NotDetected)
== END 2023-04-22 16:19 | disposition home or self-care (01) ==
PROVIDERS: Emergency Provider Nurse Practitioner Family; PCP Nurse Practitioner Family
DX: J10.1 Influenza due to other identified influenza virus with other respiratory manifestations (principal); E87.1 Hypo-osmolality and hyponatremia; R50.9 Fever, unspecified; R11.2 Nausea with vomiting, unspecified; R19.7 Diarrhea, unspecified; R07.0 Pain in throat; R05.9 Cough, unspecified; R09.81 Nasal congestion; R53.81 Other malaise; B34.1 Enterovirus infection, unspecified
CPT/HCPCS: 87581; 87632; 87635; 87798; 87804; 87880; 99212; 99213; G0463

== ENCOUNTER 2023-06-28 15:45 | Outpatient (CLI) | payer MEDICAID, SELFPAY ==
--- NOTE | 2023-06-28 15:46 | US_ITS ---
PROCEDURE: US TRANSVAGINAL CLINICAL INDICATION: pcos COMPARISON: No exams were available for comparison FINDINGS: Transvaginal and transabdominal sonographic images of the pelvis were obtained. UTERUS: 7.5 cm x 4.2cmx 3.7 cm anteverted with a combined endometrial thickness of 6.8mm. There is a fluid collection within the lower uterine segment, upper cervix. LEFT OVARY: 4.0cmx2.2cmx2.4cm with a volume of 10.9ml. Left ovary has a polycystic appearance. RIGHT OVARY: 2.0cmx 2.7 cmx3.3cm with a volume of 9.2ml. The right ovary has a polycystic appearance. Both ovaries are seen and appear normal. Doppler flow to both ovaries are seen. There is no fluid in the cul-de-sac. IMPRESSION: 1. Anteverted uterus normal in shape and size. The endometrium is thin. 2. Within the lower uterine segment and cervix there is a fluid collection. 3. Both ovaries are seen and appear polycystic. 4. No fluid in the cul-de-sac. Dictated by: Tab Pope MD 06/28/2023 17:14 Tab Pope MD in OV 06/28/2023 17:14
== END 2023-06-28 23:59 ==
LOC: RAD 15:46
PROVIDERS: PCP Nurse Practitioner Family; Visit Provider Nurse Practitioner Obstetrics & Gynecology
DX: E28.2 Polycystic ovarian syndrome (principal)
CPT/HCPCS: 76830

== ENCOUNTER 2023-07-08 11:49 | Outpatient (CLI) | payer MEDICAID, SELFPAY ==
[2023-07-08 11:56] LABS: Microscopic, Urine URINE MICROSCOPIC (MICROSCOPIC)
[2023-07-08 12:17] LABS: Appearance,Urine CLEAR (Clear); Bilirubin,Urine Negative (Negative); Blood, Urine Negative (Negative); Color,Urine YELLOW (Yellow); Glucose,Urine (UA) Negative (Negative); Ketones,Urine Negative (Negative); Leukocyte Esterase,Urine Negative (Negative); Nitrate,Urine Negative (Negative); PH,Urine 7.5 (5.0-8.5); Protein,Urine Negative (Negative); Urobilinogen,Urine 0.2 EU/dl (0.2)
[2023-07-08 12:19] LABS: Basophils # 0.1 K/mm3 (0-0.2); Basophils % 1.3 % (0.1-2.0); Eosinophils # 0.2 K/mm3 (0.0-0.4); Eosinophils % 2.4 % (0.1-12.0); Hematocrit 45.4 % (37.0-47.0); Hemoglobin 15.1 g/dL (12.2-16.2); Lymphocytes # 1.7 K/mm3 (0.7-4.5); Mean Corpuscular HGB Conc 33.3 g/dL (31.8-35.4); Mean Corpuscular Hemoglobin 31.1 pg (27.0-31.2); Mean Corpuscular Volume 93.5 fl (81-99); Mean Platelet Volume 8.7 fl (7.4-10.4); Monocytes # 0.7 K/mm3 (0.1-1.0); Monocytes % 8.9 % (1.7-9.3); Neutrophils # 4.9 K/mm3 (1.8-7.8); Neutrophils % 65.4 % (37.0-80.0); Platelet Count 294 K/mm3 (142-424); Red Blood Count 4.85 M/mm3 (4.20-5.40); Red Cell Distribution Width 12.8 % (11.5-17.5); White Blood Count 7.5 K/mm3 (4.8-10.8)
[2023-07-08 12:45] LABS: Bacteria,Urine Trace /lpf; Squamous Epithelial Cell,Urine Occasional #/hpf (0-5)
[2023-07-08 12:49] LABS: Alanine Aminotransferase 28 U/L (12-78); Albumin Level 4.8 g/dl (3.5-5.0); Albumin/Globulin Ratio 1.9 (1.1-1.8); Alkaline Phosphatase 69 U/L (38-126); Anion Gap 11.3 mEq/L (5-15); Aspartate Amino Transferase 25 U/L (14-36); Bilirubin,Total 0.5 mg/dl (0.2-1.3); Blood Urea Nitrogen 14 mg/dl (7-17); Calcium 9.7 mg/dl (8.4-10.2); Carbon Dioxide 25 mmol/L (22.0-30.0); Chloride 105 mmol/L (98-107); Estimated Glomerular Filt Rate 124 ml/min (>60); GFR (African American) 150 ML/MIN (>60); Globulin 2.5 g/dL (1.3-3.2); Glucose 103 mg/dl (74-100); Potassium 4.3 mmoL/L (3.5-5.1); Sodium 137 mmol/L (136-145); Total Protein,Serum 7.3 g/dl (6.3-8.2)
[2023-07-08 13:21] LABS: Thyroid Stimulating Hormone 1.22 uIU/mL (0.465-4.68)
== END 2023-07-08 23:59 ==
PROVIDERS: PCP Nurse Practitioner Family; Visit Provider Nurse Practitioner Family
DX: R10.10 Upper abdominal pain, unspecified (principal); R10.30 Lower abdominal pain, unspecified
CPT/HCPCS: 36415; 80053; 81001; 84443; 85025

== ENCOUNTER 2023-08-02 10:15 | Outpatient (CLI) | payer MEDICAID, SELFPAY ==
--- NOTE | 2023-08-02 10:21 | CT_ITS ---
FINAL REPORT TECHNIQUE: Postcontrast axial images through the abdomen and pelvis were performed. This study was performed with techniques to keep radiation doses as low as reasonably achievable, (ALARA). Individualized dose reduction techniques using automated exposure control or adjustment of mA and/or kV according to the patient's size were employed. CLINICAL HISTORY: UPPER ABD PAIN,LOWER ABD PAIN,PCOS,RECTAL BLEEDING COMPARISON: 07/31/2021 FINDINGS: Abdomen: The lung bases are clear. The liver is normal in size and attenuation. The spleen is unremarkable. The adrenals are normal. The pancreas is unremarkable. The kidneys enhance appropriately. The aorta is normal in caliber. No free fluid or adenopathy is identified. No findings for mechanical bowel obstruction are identified. Pelvis: The appendix is normal. The urinary bladder is unremarkable. No free fluid, free air, abscess or adenopathy is identified. IMPRESSION: No findings to account for patient's symptoms. Reviewed, Interpreted and Dictated by Herrera Dunne III, MD Transcribed by Gracie Hi Authenticated and [facility]
[2023-08-02] MEDS: SODIUM CHLORIDE 0.9% 10ML SYR (RAD ONLY) 10 ML IV (10:47)
[2023-08-02] MEDS: IOPAMIDOL-370 (76%);100ML BOTTLE 75 ML IV (10:47)
== END 2023-08-02 23:59 ==
LOC: RAD 10:15
PROVIDERS: PCP Nurse Practitioner Family; Visit Provider Nurse Practitioner Family
DX: R10.10 Upper abdominal pain, unspecified (principal); R10.30 Lower abdominal pain, unspecified; K62.5 Hemorrhage of anus and rectum; E28.2 Polycystic ovarian syndrome
CPT/HCPCS: 74177; Q9967

== ENCOUNTER 2024-11-22 18:41 | Emergency (ER) | payer MEDICAID, SELFPAY ==
[2024-11-22] VITALS (8 sets, daily range): BP systolic 111–127; BP diastolic 69–80; PULSE 68–96; RESP 16; TEMP 36.6–37; O2SAT 96–99; BMI 47.9
--- NOTE | 2024-11-22 19:47 | ED_ITS ---
Discharge Plan Disposition Patient Disposition: Home, Self-Care Condition: Good Prescriptions Prescriptions: New ondansetron 4 mg tablet,disintegrating 4 mg PO Q6H PRN (Reason: nausea and vomiting) 4 Days Qty: 16 0RF No Action Nexplanon 68 mg implant 1 implant subdermal ONCE dextroamphetamine-amphetamine 5 mg tablet 5 mg PO DAILY Referrals Follow up/Referrals: Aurelio Suárez MD [Primary Care Provider, Medical] - See instructions Activity Restrictions/Add. Instructions Additional Instructions/Restrictions: Follow-up with your [facility] physician regarding your ovarian cyst, which was likely an incidental finding today. You can take Tylenol and ibuprofen to help with abdominal pain. You can also take Zofran to help with nausea. Follow-up with your primary care physician early next week if symptoms do not improve. If you develop any new or worsening symptoms, or if you become concerned for your health for any reason, return to the emergency department for evaluation. Clinical Impressions Clinical Impression: Abdominal pain, Fall, Ovarian cyst Instructions Patient Instructions: DI for Acute Abdominal Pain Print Language Print Language: [place] Citizen Discharge ED Provider: Reza Beasley General Adult HPI <ISELA Kenney - Last Filed: 11/22/24 21:45> General Chief complaint: Abdominal Pain Stated complaint: AO 11/21/241999 injury to stomach,dizziness,vag b Time Seen by Provider: 11/22/24 19:47 Mode of Arrival: Ambulatory Source of Information: Patient Description of Symptoms (Recalled from ER Triage Doc. by RN): Slipped giving her child a bath last night. Hit mid-abdomen on side of tub. Having pain 7/10 and vaginal bleeding now. History of Present Illness HPI narrative: Patient presents for abdominal trauma. Patient slipped while giving her child a bath and landed on the side of the tub with her abdomen. This occurred yesterday however patient's had increasing abdominal pain throughout the day today. She has had nausea but no vomiting no diarrhea. Patient also started having vaginal bleeding today and she is a week out of having her period. She reports that the flow has been very heavy which is unusual for her. She denies any shortness of breath fever chills hemoptysis hematochezia melena hematemesis hematuria dysuria. Related Data Home Medications ?Medication ?Instructions ?Recorded ?Confirmed etonogestrel 68 mg subdermal 1 implant subdermal ONCE 06/13/23 11/22/24 implant (Nexplanon) dextroamphetamine-amphetamine 5 mg 5 mg PO DAILY 11/2211/22/24 tablet Previous Rx's ?Medication ?Instructions ?Recorded ondansetron 4 mg disintegrating 4 mg PO Q6H PRN nausea and 11/22/24 tablet vomiting 4 days #16 tabs Allergies Allergy/AdvReac Type Severity Reaction Status Date / Time No Known Allergies Allergy Verified 11/01/23 10:07 [facility] <ISELA Kenney - Last Filed: 11/22/24 21:45> [facility] Disclaimer: The information contained in this section may have been updated after the patient was seen, as this information can be updated by other users. Medical History Anxiety and depression PCOS (polycystic ovarian syndrome) Surgical History History of delivery Family History Other No significant family history Social History Smoking Status: Never smoker alcohol intake: never substance use type: denies use current occupational status: other Travel in the last 8 weeks?: None Have you lived/traveled outside US in past 30 days?: No Contact w/someone who lives/traveled outside US past 30 days?: No Exposure to someone with infectious disease in past 14 days?: No Do you have a fever (greater than 100.4 F or 38 C)?: No Have you tested positive for COVID-19?: No Exposed to someone with COVID-19 in past 14 days?: No Do you have a sore throat?: No Do you have a cough?: No Do you have any weakness?: No Do you have any diarrhea?: No Are you experiencing any unusual bleeding?: No Do you have any muscle aches/pain?: No Do you have any abdominal pain?: No Are you experiencing loss of taste or smell?: No Other Medical History Have you received the Flu Vaccine for this season: No Have you received the Pneumonia Vaccine: No <ISELA Kenney - Last Filed: 11/22/24 21:45> ROS Obtained: Yes Systems reviewed as appropriate & no additional complaints except as documented Physical Exam <ISELA Kenney - Last Filed: 11/22/24 21:45> General General appearance: alert and in no apparent distress Respiratory Respiratory exam: Present normal lung sounds bilaterally Cardiovascular Cardiovascular exam: Present regular rate Neurological Exam Neurological exam: Present alert and oriented X3 Medical Decision Making <ISELA Kenney - Last Filed: 11/22/24 21:45> Medical Records Medical records reviewed: Yes I reviewed the patient's medical records. Screening: Per USPSTF and CDC recommendations, given the prevalence of disease in our region, it is our hospital?s policy to screen for HIV and viral Hepatitis for all patients aged 18 and over and those with ongoing risk factors. Roman Inquiry Pt receiving controlled substance: No Vital Signs: 11/22/24 19:44 11/22/24 20:00 11/22/24 20:30 Temperature 98.6 F Temperature Source Oral Pulse Rate 91 H 88 Pulse Rate [Radial] 87 Respiratory Rate 16 16 16 Blood Pressure 114/69 122/78 Blood Pressure [Left Arm] 127/80 Blood Pressure Mean 79 85 Blood Pressure Mean [Left Arm] 95 02 Sat by Pulse Oximetry 98 98 97 Oxygen Delivery Method Room Air 11/22/24 20:46 11/22/24 21:30 11/22/24 22:30 Temperature Temperature Source Pulse Rate 83 80 96 H Pulse Rate [Radial] Respiratory Rate 16 16 Blood Pressure 112/78 117/76 124/70 Blood Pressure [Left Arm] Blood Pressure Mean 87 95 Blood Pressure Mean [Left Arm] 02 Sat by Pulse Oximetry 96 98 96 Oxygen Delivery Method Room Air 11/22/24 23:00 11/22/24 23:26 Temperature 98 F Temperature Source Pulse Rate 68 68 Pulse Rate [Radial] Respiratory Rate 16 16 Blood Pressure 111/69 111/69 Blood Pressure [Left Arm] Blood Pressure Mean 79 Blood Pressure Mean [Left Arm] 02 Sat by Pulse Oximetry 99 Oxygen Delivery Method Room Air Lab Data Lab results reviewed: Yes I reviewed the patient's lab results. Lab Results 11/22/24 20:10: WBC 8.8, RBC 4.88, Hgb 14.9, Hct 44.5, MCV 91.2, MCH 30.5, MCHC 33.5, RDW 12.4, Plt Count 329, MPV 10.3, Neut % (Auto) 67.2, Lymph % (Auto) 24.9, [place] % (Auto) 6.2, Eos % (Auto) 0.9, Baso % (Auto) 0.6, Neut # (Auto) 5.9, Lymph # (Auto) 2.2, [place] # (Auto) 0.6, Eos # (Auto) 0.1, Baso # (Auto) 0.1, PT 10.8, INR 0.97, Sodium 137, Potassium 3.7, Chloride 101, Carbon Dioxide 28, Anion Gap 11.7, BUN 15, Creatinine 0.70, Estimated Creat Clear 103, Estimated GFR 103, Est GFR ( Amer) 124, Glucose 97, Calcium 9.8, Total Bilirubin 0.5, AST 34, ALT 37, Alkaline Phosphatase 73, Total Protein 8.3 H, Albumin 5.0, Globulin 3.3 H, Albumin/Globulin Ratio 1.5, Serum HCG, Qual Negative, Blood Type A Positive, Antibody Screen Negative 11/22/24 20:45: Urine Color Yellow, Urine Appearance Sl cloudy, Urine pH 6.0, Ur Specific [place] >= 1.030, Urine Protein Trace, Urine Glucose (UA) Negative, Urine Ketones Negative, Urine Blood Negative, Urine Nitrate Negative, Urine Bilirubin 1+ A, Urine Urobilinogen 0.2, Ur Leukocyte Esterase Negative, Urine RBC None, Urine WBC Occasional, Ur Squamous Epith Cells 3-5, Urine Bacteria Trace 11/22/24 20:10 11/22/24 20:10 Orders (Tests/Meds): ED MEDICATIONS Discontinued Medications Generic Name Dose Route Start Last Admin Trade Name Anali PRN Reason Stop Dose Admin Acetaminophen 1,000 mg 11/22/24 19:53 11/22/24 20:13 Acetaminophen 1,000mg/100ml Vial IV 11/22/24 19:54 1,000 mg ONCE ONE Administration Hydromorphone HCl 1 mg 11/22/24 21:36 11/22/24 21:43 Hydromorphone 2mg/Ml Syringe IV 11/22/24 21:37 1 mg ONCE ONE Administration Sodium Chloride 1,000 mls @ 999 mls/hr 11/22/24 19:53 11/22/24 20:12 Sod Chlor 0.9% 1000ml Bag IV 11/22/24 20:53 999 mls/hr .Q1H1M ONE Administration Iopamidol 75 ml 11/22/24 21:02 11/22/24 21:02 Iopamidol-370 (76%);100ml Bottle IV 11/22/24 21:03 75 ml ONCE ONE Administration Morphine Sulfate 1 mg 11/22/24 19:53 11/22/24 20:13 Morphine 2mg/Ml Syringe IV 11/22/24 19:54 1 mg ONCE ONE Administration Ondansetron HCl 4 mg 11/22/24 19:53 11/22/24 20:13 Ondansetron 4mg/2ml Vial IV 11/22/24 19:54 4 mg ONCE ONE Administration Promethazine HCl 12.5 mg 11/22/24 22:24 11/22/24 22:28 Promethazine Hcl 25mg/Ml 1ml Vial IV 11/22/24 22:25 12.5 mg ONCE ONE Administration Sodium Chloride 10 ml 11/22/24 21:02 11/22/24 21:02 Sodium Chloride 0.9% 10ml Syr (Rad Only) IV 11/22/24 21:03 10 ml ONCE ONE Administration Sodium Chloride 25 ml 11/22/24 22:24 11/22/24 22:28 Sodium Chloride 0.9% 25ml Bag IV 11/22/24 22:25 25 ml ONCE ONE Administration ORDERS Category Date Time Status Type and Screen Stat BBK 11/22/24 20:[address] abdomen pelvis w con Stat Cat Scan 11/22/24 19:53 Completed US transvaginal Stat Exams 11/22/24 21:39 Completed CBC w/Auto Diff [Complete Blood Count Auto Diff] Stat Lab 11/22/24 20:10 Completed CMP [Comprehensive Metabolic Panel] Stat Lab 11/22/24 20:10 Completed HCG Qualitative, Serum Stat Lab 11/22/24 20:10 Completed INR [Prothrombin Time INR] Stat Lab 11/22/24 20:10 Completed UA [Urinalysis and Microscopic] Stat Lab 11/22/24 20:45 Completed Medical Decision Narrative: In summary patient is a 24-year-old female who presents to the emergency department for evaluation of alek pain after a fall and blunt abdominal trauma along with vaginal bleeding. Patient is hemodynamically stable with a blood pressure 127/80 heart rate 87 sinus rhythm on the bedside monitor breathing 16 times a minute satting at 98% on room air upon arrival, afebrile at 98.6. Physical exam is remarkable for abdominal tenderness across the mid abdomen however there is no evidence of contusions abrasions edema deformities normal bowel sounds.. Differential diagnosis includes hollow viscus injury versus dysfunctional uterine bleeding versus bowel perforation etc. Initial workup will be conducted with hematologic labs urinalysis CT scan abdomen pelvis. Initial interventions include crystalloid bolus Tylenol Zofran morphine. Initial workup reviewed by me and her hematologic labs show a normal white count normal H&H no neutrophilic shift INR 0.97 her chemistries are normal urinalysis is bland with no red blood cells or bacteria. My informed interpretation of her imaging shows no acute intra-abdominal injury but does show approximately 3 to 4 cm right adnexal cyst prior to radiology read. Please see final read formal interpretation.. Upon repeat evaluation patient reports that her pain was still significant and only down to an 8 out of 10. I have given the patient another dose of pain medication this time Dilaudid and have ordered a transvaginal ultrasound to rule out torsion. Patient handed off to Dr. Beasley at 2200 hrs. <Reza Beasley MD - Last Filed: 11/23/24 10:13> Vital Signs: 11/22/24 19:44 11/22/24 20:00 11/22/24 20:30 Temperature 98.6 F Temperature Source Oral Pulse Rate 91 H 88 Pulse Rate [Radial] 87 Respiratory Rate 16 16 16 Blood Pressure 114/69 122/78 Blood Pressure [Left Arm] 127/80 Blood Pressure Mean 79 85 Blood Pressure Mean [Left Arm] 95 02 Sat by Pulse Oximetry 98 98 97 Oxygen Delivery Method Room Air 11/22/24 20:46 11/22/24 21:30 11/22/24 22:30 Temperature Temperature Source Pulse Rate 83 80 96 H Pulse Rate [Radial] Respiratory Rate 16 16 Blood Pressure 112/78 117/76 124/70 Blood Pressure [Left Arm] Blood Pressure Mean 87 95 Blood Pressure Mean [Left Arm] 02 Sat by Pulse Oximetry 96 98 96 Oxygen Delivery Method Room Air 11/22/24 23:00 11/22/24 23:26 Temperature 98 F Temperature Source Pulse Rate 68 68 Pulse Rate [Radial] Respiratory Rate 16 16 Blood Pressure 111/69 111/69 Blood Pressure [Left Arm] Blood Pressure Mean 79 Blood Pressure Mean [Left Arm] 02 Sat by Pulse Oximetry 99 Oxygen Delivery Method Room Air Lab Data Lab Results 11/22/24 20:10: WBC 8.8, RBC 4.88, Hgb 14.9, Hct 44.5, MCV 91.2, MCH 30.5, MCHC 33.5, RDW 12.4, Plt Count 329, MPV 10.3, Neut % (Auto) 67.2, Lymph % (Auto) 24.9, [place] % (Auto) 6.2, Eos % (Auto) 0.9, Baso % (Auto) 0.6, Neut # (Auto) 5.9, Lymph # (Auto) 2.2, [place] # (Auto) 0.6, Eos # (Auto) 0.1, Baso # (Auto) 0.1, PT 10.8, INR 0.97, Sodium 137, Potassium 3.7, Chloride 101, Carbon Dioxide 28, Anion Gap 11.7, BUN 15, Creatinine 0.70, Estimated Creat Clear 103, Estimated GFR 103, Est GFR ( Amer) 124, Glucose 97, Calcium 9.8, Total Bilirubin 0.5, AST 34, ALT 37, Alkaline Phosphatase 73, Total Protein 8.3 H, Albumin 5.0, Globulin 3.3 H, Albumin/Globulin Ratio 1.5, Serum HCG, Qual Negative, Blood Type A Positive, Antibody Screen Negative 11/22/24 20:45: Urine Color Yellow, Urine Appearance Sl cloudy, Urine pH 6.0, Ur Specific [place] >= 1.030, Urine Protein Trace, Urine Glucose (UA) Negative, Urine Ketones Negative, Urine Blood Negative, Urine Nitrate Negative, Urine Bilirubin 1+ A, Urine Urobilinogen 0.2, Ur Leukocyte Esterase Negative, Urine RBC None, Urine WBC Occasional, Ur Squamous Epith Cells 3-5, Urine Bacteria Trace Orders (Tests/Meds): ED MEDICATIONS Discontinued Medications Generic Name Dose Route Start Last Admin Trade Name Anali PRN Reason Stop Dose Admin Acetaminophen 1,000 mg 11/22/24 19:53 11/22/24 20:13 Acetaminophen 1,000mg/100ml Vial IV 11/22/24 19:54 1,000 mg ONCE ONE Administration Hydromorphone HCl 1 mg 11/22/24 21:36 11/22/24 21:43 Hydromorphone 2mg/Ml Syringe IV 11/22/24 21:37 1 mg ONCE ONE Administration Sodium Chloride 1,000 mls @ 999 mls/hr 11/22/24 19:53 11/22/24 20:12 Sod Chlor 0.9% 1000ml Bag IV 11/22/24 20:53 999 mls/hr .Q1H1M ONE Administration Iopamidol 75 ml 11/22/24 21:02 11/22/24 21:02 Iopamidol-370 (76%);100ml Bottle IV 11/22/24 21:03 75 ml ONCE ONE Administration Morphine Sulfate 1 mg 11/22/24 19:53 11/22/24 20:13 Morphine 2mg/Ml Syringe IV 11/22/24 19:54 1 mg ONCE ONE Administration Ondansetron HCl 4 mg 11/22/24 19:53 11/22/24 20:13 Ondansetron 4mg/2ml Vial IV 11/22/24 19:54 4 mg ONCE ONE Administration Promethazine HCl 12.5 mg 11/22/24 22:24 11/22/24 22:28 Promethazine Hcl 25mg/Ml 1ml Vial IV 11/22/24 22:25 12.5 mg ONCE ONE Administration Sodium Chloride 10 ml 11/22/24 21:02 11/22/24 21:02 Sodium Chloride 0.9% 10ml Syr (Rad Only) IV 11/22/24 21:03 10 ml ONCE ONE Administration Sodium Chloride 25 ml 11/22/24 22:24 11/22/24 22:28 Sodium Chloride 0.9% 25ml Bag IV 11/22/24 22:25 25 ml ONCE ONE Administration ORDERS Category Date Time Status Type and Screen Stat BBK 11/22/24 20:[address] abdomen pelvis w con Stat Cat Scan 11/22/24 19:53 Completed US transvaginal Stat Exams 11/22/24 21:39 Completed CBC w/Auto Diff [Complete Blood Count Auto Diff] Stat Lab 11/22/24 20:10 Completed CMP [Comprehensive Metabolic Panel] Stat Lab 11/22/24 20:10 Completed HCG Qualitative, Serum Stat Lab 11/22/24 20:10 Completed INR [Prothrombin Time INR] Stat Lab 11/22/24 20:10 Completed UA [Urinalysis and Microscopic] Stat Lab 11/22/24 20:45 Completed Medical Decision Narrative: In summary patient is a 24-year-old female who presents to the emergency department for evaluation of alek pain after a fall and blunt abdominal trauma along with vaginal bleeding. Patient is hemodynamically stable with a blood pressure 127/80 heart rate 87 sinus rhythm on the bedside monitor breathing 16 times a minute satting at 98% on room air upon arrival, afebrile at 98.6. Physical exam is remarkable for abdominal tenderness across the mid abdomen however there is no evidence of contusions abrasions edema deformities normal bowel sounds.. Differential diagnosis includes hollow viscus injury versus dysfunctional uterine bleeding versus bowel perforation etc. Initial workup will be conducted with hematologic labs urinalysis CT scan abdomen pelvis. Initial interventions include crystalloid bolus Tylenol Zofran morphine. Initial workup reviewed by me and her hematologic labs show a normal white count normal H&H no neutrophilic shift INR 0.97 her chemistries are normal urinalysis is bland with no red blood cells or bacteria. My informed interpretation of her imaging shows no acute intra-abdominal injury but does show approximately 3 to 4 cm right adnexal cyst prior to radiology read. Please see final read formal interpretation.. Upon repeat evaluation patient reports that her pain was still significant and only down to an 8 out of 10. I have given the patient another dose of pain medication this time Dilaudid and have ordered a transvaginal ultrasound to rule out torsion. Patient handed off to Dr. Beasley at 2200 hrs. I was consulted by the MIKAYLA, and we discussed the complexity of the problems being addressed. I approve the treatment and management plan for this patient's care in the emergency department, thus performing a substantive portion of the medical decision making. At 2200, I assumed sole care of this patient pending transvaginal ultrasound and reassessment of symptoms. Transvaginal ovary shows normal ovarian blood flow with a simple cyst in the right ovary measuring 3.6 cm. No other significant findings are appreciated. On reassessment, patient has not had any vomiting and overall feels slightly better in terms of her pain. Workup today is unremarkable for any traumatic pathology or intra-abdominal injuries and a negative transvaginal ultrasound. She was encouraged to take Tylenol and ibuprofen for her symptoms at home and she would likely be sore over the next few days. She was encouraged to follow-up with her primary care physician early next week if symptoms had not improved. Return precautions were provided. All questions were answered. She demonstrated understanding and was in agreement this plan. She was then discharged from the emergency department in stable condition. Reza Beasley MD Critical Care <ISELA Kenney - Last Filed: 11/22/24 21:45> Critical Care Time Critical Care Time: No
--- NOTE | 2024-11-22 19:53 | CT_ITS ---
PROCEDURE INFORMATION: Exam: CT Abdomen And Pelvis With Contrast Exam date and time: 11/22/2024 8:59 PM Age: 24 years old Clinical indication: Abdominal pain; Additional info: Blunt abdominal trauma, vaginal bleeding TECHNIQUE: Imaging protocol: Computed tomography of the abdomen and pelvis with contrast. Radiation optimization: All CT scans at this facility use at least one of these dose optimization techniques: automated exposure control; mA and/or kV adjustment per patient size (includes targeted exams where dose is matched to clinical indication); or iterative reconstruction. Contrast material: ISOVUE; Contrast volume: 75 ml; Contrast route: IV; COMPARISON: CT ABDOMEN PELVIS W CON 08/02/2023 10:35 AM FINDINGS: Liver: Normal. No mass. Gallbladder and biliary ducts: Normal. No calcified stones. No ductal dilation. Pancreas: Normal. No ductal dilation. Spleen: Normal. No splenomegaly. Adrenal glands: Normal. No mass. Kidneys and ureters: Normal. No hydronephrosis. Stomach and bowel: Unremarkable. No obstruction. No mucosal thickening. Appendix: No evidence of appendicitis. Intraperitoneal space: Unremarkable. No free air. No significant fluid collection. Vasculature: Unremarkable. No abdominal aortic aneurysm. Lymph nodes: Unremarkable. No enlarged lymph nodes. Urinary bladder: Unremarkable as visualized. Reproductive: 3.7 cm right ovarian cyst. Multiple tiny follicular cysts in the left ovary. 5.6 cm tubular gas filled structure transversely oriented in the distal cervix. Bones/joints: Unremarkable. No acute fracture. Soft tissues: Unremarkable. IMPRESSION: 1. 3.7 cm right ovarian cyst. Multiple tiny follicular cysts in the left ovary. 2. 5.6 cm tubular gas filled structure transversely oriented in the distal cervix. Correlate clinically. No free fluid , hemorrhage or abscess or free air.
[2024-11-22] MEDS: 0.9 % SODIUM CHLORIDE 1000ML 1,000 ML 999 ML IV (20:12)
[2024-11-22] MEDS: ACETAMINOPHEN 1,000MG/100ML VIAL 1000 MG IV (20:13)
[2024-11-22] MEDS: MORPHINE 2MG/ML SYRINGE 1 MG IV (20:13)
[2024-11-22] MEDS: ONDANSETRON 4MG/2ML VIAL 4 MG IV (20:13)
[2024-11-22 20:24] LABS: Hematocrit 44.5 % (37.0-47.0); Hemoglobin 14.9 g/dL (12.2-16.2); Immature Granulocytes % 0.2 %; Mean Corpuscular HGB Conc 33.5 g/dL (31.8-35.4); Mean Corpuscular Hemoglobin 30.5 pg (27.0-31.2); Mean Corpuscular Volume 91.2 fl (81-99); Nucleated Red Blood Cells % 0 %; Platelet Count 329 K/mm3 (142-424); Red Blood Count 4.88 M/mm3 (4.20-5.40); Red Cell Distribution Width-SD 41.1 fL; White Blood Count 8.8 K/mm3 (4.8-10.8)
[2024-11-22 20:35] LABS: INR 0.97 (0.9-1.1); Prothrombin Time 10.8 seconds (10.1-12.5)
[2024-11-22 20:36] LABS: HCG Qualitative, Serum Negative (Negative)
[2024-11-22 20:37] LABS: Albumin Level 5.0 g/dl (3.5-5.0); Chloride 101 mmol/L (98-107); Potassium 3.7 mmoL/L (3.5-5.1); Sodium 137 mmol/L (136-145)
[2024-11-22 20:40] LABS: Alanine Aminotransferase 37 U/L (12-78); Albumin/Globulin Ratio 1.5 (1.1-1.8); Alkaline Phosphatase 73 U/L (38-126); Anion Gap 11.7 mEq/L (5-15); Aspartate Amino Transferase 34 U/L (14-36); Bilirubin,Total 0.5 mg/dl (0.2-1.3); Blood Urea Nitrogen 15 mg/dl (7-17); Carbon Dioxide 28 mmol/L (22.0-30.0); Creatinine Clearance Estimated 103 mL/min (50-200); Creatinine,Serum 0.70 mg/dl (0.52-1.04); Estimated Glomerular Filt Rate 103 ml/min (>60); GFR (African American) 124 ML/MIN (>60); Globulin 3.3 g/dL (1.3-3.2); Total Protein,Serum 8.3 g/dl (6.3-8.2)
[2024-11-22 20:41] LABS: Calcium 9.8 mg/dl (8.4-10.2); Glucose 97 mg/dl (74-100)
[2024-11-22 20:46] LABS: Microscopic, Urine URINE MICROSCOPIC (MICROSCOPIC)
[2024-11-22 20:49] LABS: Color,Urine YELLOW (Yellow); Glucose,Urine (UA) Negative (Negative); Ketones,Urine Negative (Negative); Leukocyte Esterase,Urine Negative (Negative); PH,Urine 6.0 (5.0-8.5); Protein,Urine TRACE (Negative); Specific Gravity, Urine >= 1.030 (1.005-1.030); Urobilinogen,Urine 0.2 EU/dl (0.2)
[2024-11-22 20:54] LABS: Bilirubin,Urine 1+ (Negative)
[2024-11-22] MEDS: IOPAMIDOL-370 (76%);100ML BOTTLE 75 ML IV (21:02)
[2024-11-22] MEDS: SODIUM CHLORIDE 0.9% 10ML SYR (RAD ONLY) 10 ML IV (21:02)
[2024-11-22 21:05] LABS: Bacteria,Urine Trace /lpf; WBC,Urine Occasional #/hpf (0-3)
--- NOTE | 2024-11-22 21:39 | US_ITS ---
PROCEDURE INFORMATION: Exam: US Pelvis, Transvaginal, Non-Obstetric Exam date and time: 11/22/2024 9:46 PM Age: 24 years old Clinical indication: Pelvic pain; Additional info: Acute abdpain right ovarian cyst rule out torsion TECHNIQUE: Imaging protocol: Real-time transvaginal pelvic (non-obstetric) ultrasound with image documentation. Transvaginal imaging was used for better evaluation of the endometrium, adnexa, and/or cervix. COMPARISON: US TRANSVAGINAL 06/28/2023 3:50 PM FINDINGS: Uterus: Uterus is normal. Fluid in the cervix. Endometrial stripe is normal. Endometrial stripe is 6 mm. Uterus measures 7.5 x 4 x 4 point a 3 cm. Right ovary/adnexa: Simple cyst in the right ovary measuring 3.6 cm No mass. Normal ovarian blood flow on color Doppler. Right ovary measures 4.6 x 3.7 x 4.5 cm Left ovary/adnexa: Normal. No mass. Normal ovarian blood flow on color Doppler. Left ovary measures 2.7 x 1.6 x 1.6 cm. Urinary bladder: Urinary bladder is limited. Intraperitoneal space: No free fluid. IMPRESSION: Simple cyst in the right ovary. Left ovary normal. Uterus normal. No free fluid
[2024-11-22] MEDS: HYDROMORPHONE 2MG/ML SYRINGE 1 MG IV (21:43)
[2024-11-22] MEDS: PROMETHAZINE HCL 25MG/ML 1ML VIAL 12.5 MG IV (22:28)
[2024-11-22] MEDS: SODIUM CHLORIDE 0.9% 25ML BAG 25 ML IV (22:28)
== END 2024-11-22 23:34 | disposition home or self-care (01) ==
PROVIDERS: Physician Assistant; Emergency Provider Student in an Organized Health Care Education/Training Program; PCP Family Medicine
DX: R10.84 Generalized abdominal pain (principal); N93.9 Abnormal uterine and vaginal bleeding, unspecified; N83.201 Unspecified ovarian cyst, right side
CPT/HCPCS: 74177; 76830; 80053; 81001; 84703; 85025; 85610; 86850; 96361; 96374; 96375; 99285; J0131; J1171; J2270; J2405; J2550; J7030; Q9967